=== PATIENT | female | born 1950 | race Caucasian/White ===

== ENCOUNTER → 2016-11-18 | Outpatient (CLI) | payer MEDICARE, BC ==
--- NOTE | 2016-11-18 11:49 | XR ---
First digit right hand HISTORY: Trauma and pain to thumb 3 views of the first digit of the right hand. No comparisons Mild osteoarthritic changes are present. Alignment and bone mineralization are maintained. Minimal ma rginal spurring and joint space loss present at the metacarpophalangeal joint, interphalangeal joint. IMPRESSION: Osteoarthritis. No fracture or dislocation.
== END | disposition home or self-care (01) ==
LOC: RADXRMAIN 08:49
PROVIDERS: ATTEND Family Medicine
DX: S69.91XA Unspecified injury of right wrist, hand and finger(s), initial encounter (principal); M18.11 Unilateral primary osteoarthritis of first carpometacarpal joint, right hand

== ENCOUNTER → 2017-08-05 | Outpatient (CLI) | payer MEDICARE, BC ==
[2017-08-05 15:27] LABS: Blood Urea Nitrogen 14 mg/dL (7-17); Non-African American GFR(MDRD) >60 (>60 ml/min/1.73 sqM)
--- NOTE | 2017-08-05 16:37 | CT ---
EXAMINATION TYPE: CT chest w con DATE OF EXAM: 08/05/2017 COMPARISON: 12/09/2014 HISTORY: Follow up scan per patient. History of lung cancer CT DLP: 128.1 mGycm, Automated exposure control for dose reduction was used. CONTRAST: Performed injected with 100 mL of Omnipaque 300. TECHNIQUE: Axial images were obtained at 5 mm thick sections. Reconstructed images are reviewed on [employer] computer in the coronal plane. FINDINGS: Portion of the thyroid visualized is normal. Emphysematous changes are within the lung escudero. There is a 0.8 cm nodule along the medial posterior upper right lung. Series 4 image 16. This is new subtle groundglass opacity may be in the periphery of the left midlung. Series 4 image 24, this is st able. An additional groundglass opacity is in the periphery of the right midlung measures 1.4 cm in AP dimension, this is new. Series 4 image 28. There is a subtle 0.6 cm nodule within the periphery of the right middle lobe. Series 4 image 27. Punctate nodular densities in the periphery of the right m idlung. This measures 0.3 cm in size. Series 4 image 29. This is stable. There is a stable groundglas s opacity in the periphery of the left upper lobe. Series 4 image 18. There is an enlarged lymph node in the anterior superior mediastinum currently measuring 1.4 cm whic h is larger than the 1.2 cm previously. Pretracheal lymph node measures 1.1 cm which is slightly larg er than the 1.0 cm previous. Ascending aorta diameter at the level of the main pulmonary artery is 2. 9 cm. The main pulmonary artery diameter at the bifurcation is 2.3 cm. Vascular calcifications withi n the aorta. Some coronary artery calcification may be present. Limited CT sections are obtained through the upper abdomen. Splenomegaly likely present although the spleen extends out of the [id number]. IMPRESSIONS: 1. Enlarging mediastinal adenopathy discussed above. Consider PET CT for additional evaluation. 2. Enlarging and new areas of groundglass opacities and subtle low density nodules within the lung fi elds. 3. Suspected splenomegaly
== END | disposition home or self-care (01) ==
LOC: RADCTMAIN 14:57
PROVIDERS: ATTEND Family Medicine
DX: R59.0 Localized enlarged lymph nodes (principal); R91.8 Other nonspecific abnormal finding of lung field; J44.9 Chronic obstructive pulmonary disease, unspecified
CPT/HCPCS: 82565; 84520; 71260; 36415; Q9967

== ENCOUNTER → 2018-12-05 | Outpatient (CLI) | payer MEDICARE, BC ==
--- NOTE | 2018-12-07 10:42 | PE ---
Nuclear medicine PET/CT HISTORY: Lung nodule, subsequent Patient received 15 mCi of F-18 FDG intravenously in delayed scanning was performed from the skull ba se to the mid thighs. Localization and attenuation correction CT scan was performed. Correlation to prior nuclear medicine PET/CT 08/30/2017 Neck and chest: Right upper lobe lung nodule is present which shows associated hypermetabolic uptake, the nodule measures 18 mm increased from prior exam approximately 8 mm. SUV is 6.4. Additional nodul arity in the right lung does not show hypermetabolic uptake, there is no pleural or pericardial effus ion. Retrocaval pretracheal lymph node is enlarged 12 mm as on prior exam but without hypermetabolic uptake. Abdomen pelvis: Colonic uptake in the right is likely physiologic. There is no retroperitoneal adenop athy. No adrenal mass. No evident liver mass. Aorta shows atheromatous change. Suspect postop changes of the gastroesophageal junction. The spleen appears prominently. No ascites. Patient is likely post appendectomy. Osseous structures are within normal limits. IMPRESSION: Interval increase in size in right upper lobe lung nodule with associated hypermetabolic uptake is a suspicious finding for bronchogenic carcinoma, recommend pulmonary consult.
== END ==
LOC: RADPETMAIN 13:29
PROVIDERS: ATTEND Family Medicine
DX: R91.1 Solitary pulmonary nodule (principal)
CPT/HCPCS: 78815; A9552

== ENCOUNTER → 2019-03-15 | Outpatient (CLI) | payer MEDICARE, BC ==
--- NOTE | 2019-03-15 16:10 | CT ---
EXAMINATION TYPE: CT angio chest DATE OF EXAM: 03/15/2019 COMPARISON: CT chest August 05, 2017. PET/CT December 05, 2018. HISTORY: Increasing SOB and chest pain after CA removed from right lung CT DLP: 321 mGycm. Automated Exposure Control for Dose Reduction was Utilized. CONTRAST: CTA scan of the thorax is performed with IV Contrast, patient injected with 80 mL of Isovue 300, pulm onary embolism protocol. MIP Images are created on CT scanner and reviewed. FINDINGS: LUNGS: Background of moderate emphysematous change redemonstrated. New scarlike opacity posterior rig ht upper lobe at area of prior hypermetabolic nodule is consistent with interval surgery as there are adjacent sutures present. Some foci of groundglass opacity in the periphery of the right midlung lat erally axial image 61 are noted could reflect developing edema and/or infiltrates. Some mild linear s carring and/or atelectasis throughout both bases is present. No new nodules or masses. MEDIASTINUM: There is satisfactory enhancement of the pulmonary artery and its branches, there is no CT evidence for pulmonary embolism. There is no suspicious subcarinal lymph node measuring 2.1 x 1.6 cm on axial image 72. There is no suspicious anterior superior mediastinal lymph node anterior to aortic arch measuring 1.2 x 1.1 cm axial image 46 with adjacent smaller lymph nodes seen superior to this. There is also enlarged pericarinal lymph node axial image 60 noted. These are more prominent f rom PET/CT where they did not show hypermetabolic uptake but remain suspicious. No cardiomegaly or pericardial effusion is seen. OTHER: Splenomegaly is felt present only partially imaged. Surgical clips just below diaphragm at gas troesophageal junction are redemonstrated. There is mild to moderate left-sided intrahepatic biliary dilatation felt present new from recent PET/CT that warrants follow-up. Osseous structures are demine ralized. IMPRESSION: 1. No CT evidence for acute pulmonary embolism 2. Interval right-sided partial pneumonectomy. Background moderate emphysematous change with scattere d parenchymal scarring and/or atelectasis. New thoracic adenopathy is felt present worrisome for neop lastic recurrence. Advise repeat PET/CT. New or enlarging splenomegaly felt present. New mild to mode rate left-sided intrahepatic biliary dilatation likely warrants follow-up.
== END | disposition home or self-care (01) ==
LOC: RADCTMAIN 14:56
PROVIDERS: ATTEND Family Medicine
DX: J43.9 Emphysema, unspecified (principal); Z90.2 Acquired absence of lung [part of]; R59.0 Localized enlarged lymph nodes; J90 Pleural effusion, not elsewhere classified
CPT/HCPCS: 82565; 84520; 71275; 36415; Q9967

== ENCOUNTER → 2019-05-21 | Outpatient (CLI) | payer MEDICARE, BC ==
[2019-05-21 12:06] LABS: INR 0.9 (<1.2); Prothrombin Time 9.8 sec (9.0-12.0)
[2019-05-21 12:08] LABS: Anisocytosis Slight; HCT 36.4 % (34.0-46.0); HGB 11.1 gm/dL (11.4-16.0); Hypochromasia Slight; MCH 24.8 pg (25.0-35.0); MCHC 30.6 g/dL (31.0-37.0); MCV 80.9 fL (80.0-100.0); Mean Platelet Volume 8.2; Platelet Count 128 k/uL (150-450); RDW 16.6 % (11.5-15.5); WBC 5.4 k/uL (3.8-10.6)
[2019-05-21 12:11] LABS: Potassium 4.9 mmol/L (3.5-5.1)
[2019-05-21 13:05] LABS: Eosinophils # (M) 0.16 k/uL (0-0.7); Monocytes # (M) 0.59 k/uL (0-1.0); Neutrophils # (M) 3.35 k/uL (1.3-7.7); Neutrophils % (M) 62 %; Nucleated Red Blood Cells 0 /100 WBC (0-0); Total Cells Counted 100
--- NOTE | 2019-05-29 23:18 | PCN ---
PROCEDURE NOTE SURGEON: Dr. Ramirez and Dr. Rogel. PROCEDURE: Bedside bronchoscopy with portable bronchoscope. PREOPERATIVE DIAGNOSIS: Airway secretions. POSTOPERATIVE DIAGNOSIS: Airway secretions. After the patient was adequately sedated and paralyzed, the bronchoscope was inserted through the bronchoscope adaptor connected to the endotracheal tube. There was evaluation of both the airways. The right lung and left lung had really pristine looking airways. There were no secretions or blood. No mass or tumor. The patient tolerated the procedure well. No samples were sent. MMODL / IJN: [id number] /
== END | disposition home or self-care (01) ==
LOC: LABPAT 11:21
PROVIDERS: ATTEND Thoracic Surgery (Cardiothoracic Vascular Surgery)
DX: Z01.812 Encounter for preprocedural laboratory examination (principal); C34.11 Malignant neoplasm of upper lobe, right bronchus or lung; D69.6 Thrombocytopenia, unspecified; R73.9 Hyperglycemia, unspecified
CPT/HCPCS: 36415; 80051; 82565; 82947; 84520; 85025; 85610; 85730

== ENCOUNTER 2019-05-27 05:46 | Inpatient (IN) | payer MEDICARE, BC ==
[~2019-05-27 05:46] MED LIST: DEXAMETHASONE SOD PHOSPHATE 10 MG/ML 1 ML VIAL IV ONE; LACTATED RINGERS 1,000 ML IV SCH; LIDOCAINE 1% 20 ML VIAL (10MG/ML) FOR IV START INTRADERMA PRN; ONDANSETRON 4 MG/2 ML VIAL IVP ONE; SCOPOLAMINE 1.5MG/72HR PATCH TRANSDERM ONE
[2019-05-27] MEDS ORDERED: LACTATED RINGERS 1,000 ML IV ONE ×3 (06:37→11:55)
[2019-05-27] MEDS ORDERED: LIDOCAINE 1% 20 ML VIAL (10MG/ML) FOR IV START INTRADERMA ONE (06:44)
[2019-05-27] MEDS ORDERED: DEXAMETHASONE SOD PHOSPHATE 4 MG/ML 1 ML VIAL IVP ONE (06:45)
[2019-05-27] MEDS ORDERED: ONDANSETRON 4 MG/2 ML VIAL IVP ONE (06:46)
[2019-05-27] MEDS ORDERED: fentaNYL (PF) 50 MCG/ML 2 ML AMP ONE (07:31)
[2019-05-27] MEDS ORDERED: LIDOCAINE 1% INJ 10MG/ML (20 ML MDV) ONE (07:31)
[2019-05-27] MEDS ORDERED: PHENYLEPHRINE-0.9% NACL SYG 1 MG/10 ML SYRINGE ONE (07:31)
[2019-05-27] MEDS ORDERED: MIDAZOLAM 2 MG/2 ML VIAL ONE (07:31)
[2019-05-27] MEDS ORDERED: GLYCOPYRROLATE 0.2 MG/ML 2 ML VIAL ONE (07:31)
[2019-05-27] MEDS ORDERED: NEOSTIGMINE 1 MG/ML 10 ML VIAL ONE (07:31)
[2019-05-27] MEDS ORDERED: PROPOFOL 10 MG/ML 20 ML VIAL IV ONE (07:31)
[2019-05-27] MEDS ORDERED: SUCCINYLCHOLINE CHLORIDE 100 MG/5 ML SYR IV ONE (07:31)
[2019-05-27] MEDS ORDERED: ROCURONIUM BROMIDE 10 MG/ML 10 ML VIAL IV ONE (07:31)
[2019-05-27] MEDS ORDERED: BUPIVACAINE (PF) 0.5% 30 ML VIAL SQ ONE (09:11)
--- NOTE | 2019-05-27 12:10 | P.OP ---
Date of Procedure: 05/27/19 Preoperative Diagnosis: Lung cancer right upper lobe status post wedge resection. Postoperative Diagnosis: Same Procedure(s) Performed: Mediastinal mass could be, right third thoracoscopy with robotic assist with lysis of adhesions, wedge resection right upper lobe, right upper lobectomy Anesthesia: STEPHON Surgeon: Gustavo Gardner Sap Crm Developer #1: Tor Velasquez Estimated Blood Loss (ml): 300 IV fluids (ml): 1,600 Urine output (ml): 125 Pathology: other (Right upper lobe posterior segmental wedge resection, right upper lobectomy, lymph node stations R4, level VII, R8, R 10, R 11) Condition: stable Disposition: PACU Indications for Procedure: 68-year-old female who is status post resection of a T2 tumor from the posterior segment of the right upper lobe via wedge resection at [facility]. Patient was referred to oncology. Lymph robbie staging have not been performed. PET scan showed some uptake in the lung consistent with postsurgical change as well as some mild uptake in the lymph nodes. There were no markedly enlarged lymph nodes. Lobectomy was recommended. It was felt ideal to perform mediastinoscopy part first to rule out N3 disease. Operative Findings: The paratracheal region was severely scarred and successful mediastinal lymph node biopsy could not be accomplished. Right pleural space was similarly severely scarred with diffuse dense adhesions. Once these of been taken down there was a question of a mass in the right posterior segment by the old staple line. This was wedged out but on removing it there was no mass evident just the old staple line. We then proceeded with the lobectomy. Lymph nodes appeared anthracotic. Description of Procedure: The patient was brought to the operating room, placed supine on the operating table, anesthetized and intubated with a double-lumen endotracheal tube. Tube was positioned with fiberoptic bronchoscopy and secured. The anterior neck and chest were sterilely prepped and draped. Transverse incision was made in the lower neck and carried down through skin and subcutaneous tissue then between the strap muscles in the midline. The pretracheal plane was entered. Treat pretracheal plane was severely scarred. With persistent and gentle dissection we were able to ultimately advance most of the way down the trachea and below the innominate artery however we were not able to successfully identify any lymph nodes even after inserting the mediastinoscope. Ultimately was decided to abandon this approach for fear that we would injure the patient. Incision was closed with layers of 3-0 Vicryl and skin glue. Patient was turned into the left lateral decubitus position and the right chest was sterilely prepped and draped. She was appropriately positioned for robotic lobectomy. Initial incision was made in the posterior axillary line in the ninth interspace a 8 mm port was advanced. This was a free area of the pleural space but the remainder of the pleural space was densely adherent. We were able to clear enough adhesions to get the ports in and then robotically take down the remaining adhesions. Was a question of a mass in the posterior segment of the right upper lobe in the region of the previous resection. This was wedged out and examined on the back table. All we could identify was old tremaine and no true mass. That point we decided to proceed with the lobectomy. The inferior pulmonary ligament was taken down. R8 and level VII lymph nodes were resected and sent for permanent section. Dissection was carried anterior to the bronchus inter medius and up to the takeoff of the upper lobe bronchus. We able to identify lymph node here and resected and send as R 11 lymph node. We were able to encircle the upper lobe bronchus and ligated and divided with a robotic ring stapler. We were able to dissected out the posterior portion of the truncus anteriosis and identify a small branch going to the posterior segment. This was ligated and divided with a single firing of a robotic stapler. We could not encircled the truncus safely. We therefore went to the front. The branches of the superior pulmonary vein draining the middle lobe were identified and the branches draining the upper lobe were ligated and divided with a vascular stapler. Dissection was carried onto the pulmonary artery and the anterior portion of the truncus was now dissected. We were now able to encircle the truncus and divided the truncus anteriosis with a vascular stapler. The posterior segmental branch was now identified and also ligated and divided with a vascular stapler. The R 10 and R4 lymph nodes were now dissected out and sent for permanent section. The pleural reflection was taken down. The fissures were now completed with multiple firings of robotic blue stapler. The specimen was placed in an Endo Catch bag. The robot was undocked and the working port incision enlarged and the specimen brought out through the working port incision. Was sent for permanent section. Chest tube was placed through separate stab incision and positioned posterior apically. The chest was irrigated and checked for air leak was no air leak from the staple lines or the bronchial stump. There will was some air leak from the lung parenchyma where the adhesions of been taken down. This was accepted. 2 lung ventilation was continued. Rib blocks were performed at the level incisions with half percent Marcaine. Incisions were closed with layers of Vicryl suture. The patient was turned supine and transferred to recovery in stable condition.
--- NOTE | 2019-05-27 12:59 | XR ---
EXAMINATION TYPE: XR chest 1V portable DATE OF EXAM: 05/27/2019 COMPARISON: 03/15/2019 HISTORY: Post lobectomy TECHNIQUE: Single frontal view of the chest is obtained. FINDINGS: There is subcutaneous emphysema and a sizable right-sided pneumothorax measuring approxima tely 30%. Left lung demonstrates costophrenic angle blunting which may represent pleural thickening o r tiny effusion. Surgical clips in the mediastinum noted. Atherosclerotic change aorta. There is diff use osteopenia and suggestive either resorption of the distal left clavicle are previous surgery. Vag ue nodular density right midlung. IMPRESSION: Right chest tube is seen with a approximately 30% right-sided pneumothorax but no medias tinal deviation. 2. Postsurgical change 3. Vague nodular density in the right midlung. A pulmonary nodule the differential diagnosis.
[2019-05-27] MEDS: HYDROmorphone 0.5 MG/0.5 ML SYRINGE IVP PRN ×3 (14:07→14:40)
[2019-05-27] MEDS ORDERED: ONDANSETRON 4 MG/2 ML VIAL IVP PRN (14:34)
[2019-05-27] MEDS ORDERED: DEXTROSE 5%-0.45% NACL 1,000 ML IV SCH (14:34)
[2019-05-27] MEDS ORDERED: IPRATROPIUM-ALBUTEROL 3 ML NEB IH PRN (14:34)
[2019-05-27] MEDS: HYDROcodone/APAP 10-325MG 1 EACH TAB PO SCH ×2 (16:09→17:27)
[2019-05-27] MEDS: IPRATROPIUM-ALBUTEROL 3 ML NEB IH SCH ×3 (16:13→20:27)
[2019-05-27] MEDS: KETOROLAC 30 MG/ML 1 ML VIAL IVP SCH (17:26)
[2019-05-27] MEDS: CARVEDILOL 6.25 MG TAB PO SCH (17:27)
[2019-05-27] MEDS: HEPARIN SODIUM,PORCINE 5,000 UNIT/ML 1 ML VIAL SQ SCH (17:27)
[2019-05-27] MEDS: ALPRAZolam 1 MG TAB PO SCH (17:28)
[2019-05-27] MEDS: SYMBICORT 160-4.5 MCG INHALER INHALATION SCH (20:27)
[2019-05-27] MEDS: PREGABALIN 75 MG CAP PO SCH (22:16)
[2019-05-27] MEDS: DESVENLAFAXINE SUCCINATE 50 MG TAB.ER.24H PO SCH (22:17)
[2019-05-27] MEDS: buPROPion 75 MG TAB PO SCH (22:17)
[2019-05-28] MEDS: HYDROcodone/APAP 10-325MG 1 EACH TAB PO SCH ×5 (00:09→18:04)
[2019-05-28] MEDS: ALPRAZolam 1 MG TAB PO SCH ×3 (00:09→17:22)
[2019-05-28] MEDS: HEPARIN SODIUM,PORCINE 5,000 UNIT/ML 1 ML VIAL SQ SCH ×4 (00:15→23:06)
[2019-05-28] MEDS: KETOROLAC 30 MG/ML 1 ML VIAL IVP SCH ×5 (06:01→23:06)
[2019-05-28] MEDS: CARVEDILOL 6.25 MG TAB PO SCH ×2 (06:20→18:00)
[2019-05-28] MEDS: PANTOPRAZOLE 40 MG TABLET PO SCH (06:20)
[2019-05-28] MEDS: IPRATROPIUM-ALBUTEROL 3 ML NEB IH SCH ×4 (07:11→19:07)
[2019-05-28] MEDS: SYMBICORT 160-4.5 MCG INHALER INHALATION SCH ×2 (07:11→19:07)
[2019-05-28 07:56] LABS: Calcium 7.6 mg/dL (8.4-10.2); Potassium 3.9 mmol/L (3.5-5.1)
[2019-05-28 08:27] LABS: Anisocytosis Slight; Basophils % (A) 1 %; Eosinophils % (A) 1 %; Hypochromasia Slight; Lymphocytes # (A) 1.4 k/uL (1.0-4.8); Lymphocytes % (A) 29 %; MCH 25.4 pg (25.0-35.0); MCV 81.8 fL (80.0-100.0); Mean Platelet Volume 8.3; Monocytes # (A) 0.3 k/uL (0-1.0); Monocytes % (A) 7 %; Neutrophils # (A) 2.7 k/uL (1.3-7.7); Neutrophils % (A) 58 %; Platelet Count 103 k/uL (150-450); RBC 3.78 m/uL (3.80-5.40); RDW 16.8 % (11.5-15.5); WBC 4.7 k/uL (3.8-10.6)
[2019-05-28 08:28] LABS: HGB 9.6 gm/dL (11.4-16.0)
--- NOTE | 2019-05-28 08:38 | XR ---
EXAMINATION TYPE: XR chest 1V DATE OF EXAM: 05/28/2019 COMPARISON: 05/27/2019 HISTORY: Post lobectomy TECHNIQUE: Single frontal view of the chest is obtained. FINDINGS: There is subcutaneous emphysema and a sizable right-sided pneumothorax measuring approxima tely 30%. Left lung demonstrates costophrenic angle blunting which may represent pleural thickening o r tiny effusion. Surgical clips in the mediastinum noted. Atherosclerotic change aorta. There is diff use osteopenia and suggestive either resorption of the distal left clavicle are previous surgery. Vag ue nodular density right midlung. IMPRESSION: 1. Stable right-sided pneumothorax measuring approximately 30%. No mediastinal deviation. 2. Persistent nodularity in the right midlung.
[2019-05-28] MEDS: buPROPion 75 MG TAB PO SCH ×2 (08:45→20:08)
[2019-05-28] MEDS: PREGABALIN 75 MG CAP PO SCH ×2 (08:48→20:09)
[2019-05-28 08:59] LABS: Albumin 2.7 g/dL (3.5-5.0); Total Bilirubin 0.3 mg/dL (0.2-1.3)
--- NOTE | 2019-05-28 14:22 | P.CONS ---
<Joseline Jacobs - Last Filed: 05/28/19 14:22> History of Present Illness - Reason for Consult Consult date: 05/27/19 Status Post Lobectomy Requesting physician: Gloria Soriano - Chief Complaint chest pain SOB - History of Present Illness Mrs. Gaming is a pleasant white female initially seen in consult in September 2014 she had been seen by Dr. Danielle at that time for diagnosis of non-small cell lung cancer status post surgical resection of the left lung at that time adjuvant therapy was not required based on her stage she was last seen in the office in April 2015 and has continued follow-up with surgery and her primary care physician. Timeline of events is still needing to be clarified. In February she was noted to madden ve concern for Right upper lobe recurrence, underwent surgical intervention at [facility], and now underwent Right lysis of adhesions, thoracoscopy and pneumonectomy 05.27.19 Review of Systems A 14 point review of systems was assessed and completed and are all negative except for HPI Past Medical History Past Medical History: Cancer, COPD, Fibromyalgia, Hypertension, Osteoarthritis (OA), Pneumonia Additional Past Medical History / Comment(s): Current right lung cancer. Hx left lung cancer 2000. Hx Shingles 20 yrs ago. Lumbar herniated disc. Hx Pneumonia 6 months ago. History of Any Multi-Drug Resistant Organisms: None Reported Past Surgical History: Appendectomy, Back Surgery, Cholecystectomy, Hernia Repair, Hysterectomy, Orthopedic Surgery Additional Past Surgical History / Comment(s): LT PARTIAL LOBECTOMY D/T CANCER, NO CHEMO NO RADIATION NEEDED. HIATAL HERNIA SURGERY X2. LT BROKEN COLLAR BONE(SX TO FIX), VERITO ELBOW SX FOR TENNIS ELBOW. Past Anesthesia/Blood Transfusion Reactions: No Reported Reaction Past Psychological History: Anxiety, Depression Smoking Status: Light tobacco smoker Past Alcohol Use History: None Reported Additional Past Alcohol Use History / Comment(s): States she smokes off and on. Currently smoking 5 cigarettes per day. Has been smoking since 17 yrs old. 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 RHEUMATIC FEVER CHILD, HAD HEART DISEASE. Mother Family Medical History: Dementia Medications and Allergies Home Medications Medication Instructions Recorded Confirmed Type ALPRAZolam [Xanax] 1 mg PO TID 08/12/14 05/27/19 History HYDROcodone/APAP 10-325MG [Left Hand 1 tab PO QID 08/12/14 05/27/19 History 10-325] Ipratropium-Albuterol Nebulize 3 ml INHALATION RT-BID 08/12/14 05/27/19 History [Duoneb 0.5 mg-3 mg/3 ml Soln] Tiotropium 18 Mcg/Puff [Spiriva] 2 puff INHALATION RT-BID 08/12/14 05/27/19 History Desvenlafaxine Succinate [Pristiq 50 mg PO HS 10/17/14 05/27/19 History ER] Pregabalin [Lyrica] 75 mg PO BID 10/17/14 05/27/19 History Hydrocortisone [Cortizone 10] 1 applic TOPICAL QID 12/12/14 05/27/19 History Budesonide-Formot 160-4.5 Mcg 2 puff INHALATION RT-BID 05/18/19 05/27/19 History [Symbicort 160-4.5 Mcg Inhaler] Carvedilol [Coreg] 6.25 mg PO BID 05/18/19 05/27/19 History buPROPion [Wellbutrin] 75 mg PO BID 05/27/19 05/27/19 History Allergies Allergy/AdvReac Type Severity Reaction Status Date / Time No Known Allergies Allergy Verified 05/27/19 14:05 Physical Exam Vitals: Vital Signs Temp Pulse Pulse Resp BP BP Pulse Ox 05/27/19 13:45 75 16 145/72 100 05/27/19 13:30 58 L 16 140/64 05/27/19 13:15 56 L 16 149/69 05/27/19 13:00 71 16 141/69 100 05/27/19 12:45 53 L 16 126/61 100 05/27/19 12:30 66 18 147/71 100 05/27/19 12:17 97.2 F L 70 16 146/90 05/27/19 06:23 97.2 F L 69 16 136/60 97 Intake and Output 05/26/19 05/27/19 05/27/19 22:59 06:59 14:59 Intake Total 200 1650 Output Total 480 Balance 200 1170 Intake: IV 200 1650 Output: Urine 180 Estimated Blood Loss 300 General: Alert and Oriented x3, No Acute Distress Head: Normocytic, Atraumatic Neck: Supple Mouth: No Lesions, No Thrush Eyes: Non-sclerotic No Palpable cervical, supraclavicular, axillary adenopathy Heart: Regular Rate, Regular Rhythm Lungs: Clear to Ausculations, No Wheeze, No Rhonchi, Diminishe bilateral lower lobes, No increased respiratory effort noted Abdomen: Soft, Non-Distended, Non-Tended, BSx4 Extremities: No Edema, Equal Strength Neurological: No Focal Defects: No sensory or motor deficits noted Psych: Calm and cooperative Results CBC & Chem 7: 05/28/19 07:23 05/28/19 07:23 Assessment and Plan Plan: Assessment and Recommendations: Hx: Non-Small Cell Lung Cancer Left Lung in (not requiring adjuvant treatment) - Underwent surgical resection - Will ask for records from prior surgery in 2014 and pathology Right Upper Lobe adenopathy and Concern for recurrent cancer: - Status Post surgical intervention at [facility] - Will ask for records, pathology, and imaging - 05.27.19: Status post surgical intervention for further resction and lysis of adhesions - Path will need to be (if not already sent) for EGFR, ALK, ROS, RET, BRAF, PDL-1, Hx: Splenomegaly Hx: Tobacco Abuse Plan: Once we are provided the full picture of information further recommendations will follow. <Pablo Rodriguez - Last Filed: 05/28/19 16:41> History of Present Illness - Reason for Consult Consult date: 05/28/19 - History of Present Illness Clarification after review of office notes: The patient's initial lung cancer diagnosis was in the left lower lobe in 2010. This was treated with resection with no adjuvant therapy recommended based on stage. - She was seen in 2014 due to new onset of pancytopenia after acute illness and antibiotic therapy. This resolved spontaneously. - She was found to have a new right upper lobe mass in 12/15, which was subsequently positive on PET scan. She had a wedge resection at [facility] revealing a 2 cm adenocarcinoma, that was completely resected, but did show visceral pleural involvement. Due to the same, she was seen by radiation oncology , Dr. Villalba and had a repeat PET scan done in either 02/14 or 03/17, rev ealing some is doing uptake at the surgical site as well as borderline uptake in a right paratracheal node. The case was discussed with radiation oncology and it was recommended that the patient be referred to cardiothoracic surgery for lymph node biopsy via mediastinoscopy. After evaluation by CT surgery, it was felt that it would be reasonable to do completion lobectomy if the lymph node was not involved. At the time of surgery due to extensive scarring in the right paratracheal area a lymph node sampling on mediastinoscopy was not possible. The patient therefore proceeded to lobectomy and lymph node dissection. Physical Exam Vitals: Vital Signs Temp Pulse Pulse Resp BP Pulse Ox 05/28/19 16:00 74 05/28/19 15:52 76 05/28/19 12:07 97.8 F 71 19 121/59 92 L 05/28/19 12:00 78 05/28/19 11:50 76 05/28/19 08:45 74 18 05/28/19 07:25 74 05/28/19 07:23 98.5 F 73 18 127/60 99 05/28/19 07:11 78 05/28/19 04:00 97.8 F 74 20 135/63 96 05/28/19 00:00 98.8 F 74 18 130/59 94 L 05/27/19 20:41 74 05/27/19 20:27 72 20 05/27/19 20:00 98.6 F 77 18 120/54 100 Intake and Output 05/28/19 05/28/19 05/28/19 06:59 14:59 22:59 Output Total 230 400 Balance -230 -400 Output: Chest Tube Drainage 230 Right Mid-Axillary Chest 230 Urine 400 Other: Voiding Method Toilet Toilet # Voids 1 1 Weight 53.8 kg Results CBC & Chem 7: 05/28/19 07:23 05/28/19 07:23 Labs: Abnormal Lab Results - Last 24 Hours (Table) 05/28/19 05/28/19 Range/Units 07:23 07:23 RBC 3.78 L (3.80-5.40) m/uL Hgb 9.6 L D (11.4-16.0) gm/dL Hct 31.0 L (34.0-46.0) % RDW 16.8 H (11.5-15.5) % Plt Count 103 L (150-450) k/uL BUN 18 H (7-17) mg/dL Glucose 114 H (74-99) mg/dL Calcium 7.6 L (8.4-10.2) mg/dL Total Protein 5.0 L (6.3-8.2) g/dL Albumin 2.7 L (3.5-5.0) g/dL Assessment and Plan Plan: As above. Clarification : Prior records from office chart and reviewed and detailed in the HPI Case was discussed with the patient and her was at the bedside. Vision was quite lethargic and sleepy. The family was advised that additional adjuvant therapy would depend on the results of the pathology. If the patient were found to have residual disease in the lung or lymph node, and she would be a candidate for adjuvant chemotherapy, and possibly radiation. However that would not start until the patient is adequately recovered from this surgery, which would be a minimum of about 4-6 weeks. She will therefore be followed up as an outpatient post discharge, with recommendations depending on the pathology, and her performance status
[2019-05-28] MEDS ORDERED: CALCIUM GLUCONATE 1 GM in SODIUM CHLORIDE 0.9% 100 ML IVPB ONE (15:00)
--- NOTE | 2019-05-28 15:08 | P.PN ---
Subjective Progress Note Date: 05/28/19 Principal diagnosis: Lung cancer right upper lobe, pathology pending. History of left-sided non- small cell lung cancer with surgical resection in 2015 without chemo or radiation, current tobacco dependence, COPD, hypertension, depression. POD #1 mediastinal, right third thoracoscopy with robotic assist with lysis of adhesions, wedge resection right upper lobe, right upper lobectomy The patient was sitting up in bed and this morning, very sleepy. Upon return assessment she was up in a recliner in no acute distress sipping coffee. She stated pain was controlled on current medication regimen and denied excessive shortness of breath. Remains on 2 L nasal cannula. Right pleural chest tube remains to continuous wall suction with continuous air leak. No new concerns. Objective - Vital Signs Vital signs: Vital Signs Temp 97.8 F 05/28/19 12:07 Pulse 71 05/28/19 12:07 Resp 19 05/28/19 12:07 BP 121/59 05/28/19 12:07 Pulse Ox 92 L 05/28/19 12:07 Intake & Output 05/27/19 05/28/19 05/28/19 18:59 06:59 18:59 Intake Total 1920 Output Total 605 230 400 Balance 1315 -230 -400 Weight 53.8 kg Intake: IV 1800 Intake, IV Titration 120 Amount Dextrose 5%-0.45% NaCl 1, 120 000 ml @ 40 mls/hr IV . Q24H [facility] Rx#:[id number] Output: Chest Tube Drainage 80 230 Right Mid-Axillary Chest 80 230 Urine 180 400 Pleural Fluid 45 Estimated Blood Loss 300 Other: Voiding Method Toilet Toilet Toilet # Voids 0 1 1 # Bowel Movements 0 - Constitutional General appearance: Present: cooperative, no acute distress - Respiratory Details: Lungs sounds diminished bilaterally with faint expiratory wheezes present. Respirations even, nonlabored. Currently on 2 L nasal cannula with oxygen saturation 92-96%. Right pleural chest tube to continuous wall suction, 230 mL serous and was drainage overnight, 550 mL since surgery. Positive continuous air leak present. - Cardiovascular Details: S1, S2 present. Regular rate and rhythm, sinus rhythm on telemetry. Palpable peripheral pulses bilaterally. No edema present. No calf pain or tenderness noted. SCDs present. - Gastrointestinal Gastrointestinal Comment(s): Abdomen soft, nontender, nondistended. Active bowel sounds present 4 quadrants. Tolerating diet. - Genitourinary Genitourinary Comment(s): Continues to void clear, yellow urine. - Integumentary Integumentary Comment(s): Skin is warm and dry with evidence of good perfusion. - Neurologic Neurologic: Present: CNII-XII intact - Musculoskeletal Musculoskeletal: Present: gait normal, strength equal bilaterally - Psychiatric Psychiatric: Present: A&O x's 3, appropriate affect, intact judgment & insight - Allied health notes Allied health notes reviewed: nursing - Labs CBC & Chem 7: 05/28/19 07:23 05/28/19 07:23 Labs: Abnormal Lab Results - Last 24 Hours (Table) 05/28/19 05/28/19 Range/Units 07:23 07:23 RBC 3.78 L (3.80-5.40) m/uL Hgb 9.6 L D (11.4-16.0) gm/dL Hct 31.0 L (34.0-46.0) % RDW 16.8 H (11.5-15.5) % Plt Count 103 L (150-450) k/uL BUN 18 H (7-17) mg/dL Glucose 114 H (74-99) mg/dL Calcium 7.6 L (8.4-10.2) mg/dL Total Protein 5.0 L (6.3-8.2) g/dL Albumin 2.7 L (3.5-5.0) g/dL - Imaging and Cardiology Chest x-ray: report reviewed, image reviewed Assessment and Plan Assessment: 1. Lung cancer right upper lobe, status post robotic-assisted thoracoscopy, lysis of adhesions, wedge resection, followed by right upper lobectomy 2. History of left sided non-small cell lung cancer with surgical resection in 2015 without chemo or radiation 3. Current tobacco dependence 4. COPD 5. Hypertension 6. Depression Plan: 1. Continue right pleural chest tube to continuous wall suction. Monitor for resolution of air leak. 2. Wean O2 as tolerated. Encourage incentive spirometry use 10 times every hour while awake 3. Encourage smoking cessation 4. Bronchodilators, steroids per pulmonology 5. GI/DVT prophylaxis 6. Pain control with current medication regimen 7. Will monitor daily labs, x-rays. Will give 1 g calcium gluconate today 8. Increase activity, ambulate in room. Nursing to lengthen chest tube suction tubing to allow patient to ambulate in the room 9. Medical management of other comorbidities per Dr. Pérez 10. More recommendations to follow Time with Patient: Greater than 30
[2019-05-28] MEDS ORDERED: Potassium Replacement Protocol 1 EACH MISC MISCELLANE PRN (16:00)
--- NOTE | 2019-05-28 16:03 | P.PN ---
Subjective Progress Note Date: 05/28/19 This is a 68-year-old female with history of ongoing nicotine dependence, COPD, hypertension, depression, left non-small cell lung cancer status post surgical resection 2014 without chemotherapy or radiation, now presenting with right upper lobe lung cancer status post mediastinal arthroscopy with lysis of adhesions, wedge resection and right upper lobectomy. Sitting up in chair, taking coffee. Denies nausea vomiting. Complains of pain at chest tube insertion site, improving. Incentive spirometer up to 1250. Telemetry sinus bradycardia to sinus rhythm.VSS. Right pleural chest tube to continuous wall suction with air leak, containing O2 sats in the 90s. Calcium 7.6. Objective - Vital Signs Vital signs: Vital Signs Temp 97.8 F 05/28/19 12:07 Pulse 71 05/28/19 12:07 Resp 19 05/28/19 12:07 BP 121/59 05/28/19 12:07 Pulse Ox 92 L 05/28/19 12:07 Intake & Output 05/27/19 05/28/19 05/28/19 18:59 06:59 18:59 Intake Total 1920 Output Total 605 230 400 Balance 1315 -230 -400 Weight 53.8 kg Intake: IV 1800 Intake, IV Titration 120 Amount Dextrose 5%-0.45% NaCl 1, 120 000 ml @ 40 mls/hr IV . [facility]H [facility] Rx#:[id number] Output: Chest Tube Drainage 80 230 Right Mid-Axillary Chest 80 230 Urine 180 400 Pleural Fluid 45 Estimated Blood Loss 300 Other: Voiding Method Toilet Toilet Toilet # Voids 0 1 1 # Bowel Movements 0 - Exam PHYSICAL EXAM: VITAL SIGNS: As above GENERAL: Sitting up in chair, no acute distress HEENT: Conjunctivae normal. eyes normal. Oral mucosa moist. NECK: No JVD. No thyroid enlargement. CARDIOVASCULAR: S1, S2 regular. No murmur RESPIRATION: Nonlabored. Breath sounds diminished in the bases, right greater than left. No rhonchi or crackles. Occasional fine expiratory wheezing. Right pleural chest tube with serosanguineous drainage, positive air leak. ABDOMEN: Soft, nontender . No guarding. no masses palpable. Bowel sounds heard. LEGS: No edema. no swelling. No calf tenderness PSYCHIATRY: Alert and oriented X3, mood and affect normal. NERVOUS SYSTEM: Cranial N 2-12 grossly normal. Moves all 4 limbs. Diffuse weakness No focal deficits. Strength and sensation grossly intact.. Skin: no lesions, no rash - Labs CBC & Chem 7: 05/28/19 07:23 05/28/19 07:23 Labs: Abnormal Lab Results - Last 24 Hours (Table) 05/28/19 05/28/19 Range/Units 07:23 07:23 RBC 3.78 L (3.80-5.40) m/uL Hgb 9.6 L D (11.4-16.0) gm/dL Hct 31.0 L (34.0-46.0) % RDW 16.8 H (11.5-15.5) % Plt Count 103 L (150-450) k/uL BUN 18 H (7-17) mg/dL Glucose 114 H (74-99) mg/dL Calcium 7.6 L (8.4-10.2) mg/dL Total Protein 5.0 L (6.3-8.2) g/dL Albumin 2.7 L (3.5-5.0) g/dL Assessment and Plan Assessment: -Right upper lobe lung cancer, status post arthroscopy, lysis of adhesions, wedge resection, lobectomy -History of left-sided non-small cell lung CA status post surgical resection in 2014 without chemotherapy or radiation -Hypocalcemia -Ongoing nicotine dependence -Hypertension -COPD -Fibromyalgia -Osteoarthritis -Anxiety, Depression -Hypoalbuminemia -Moderate protein calorie malnutrition, BMI 20.4 Plan: Continue on current medication regime ,monitoring and symptomatic treatment. Protein supplements ordered, dietary consulted .Calcium gluconate 1 g IV push 1 ordered. Maintain nebulized bronchodilators, steroids. Aggressive pulmonary toileting with incentive spirometer reinforced. Pain management. Increase ambulation as tolerated. GI and DVT prophylaxis in place. Smoking cessation reinforced. The impression and plan of care has been dictated as directed. : I performed a history and examination of this patient, discussed the same with the dictator. I agree with the dictator's note ,documented as a scribe. Any additional findings or plans will be noted.
--- NOTE | 2019-05-28 16:53 | CONS ---
CONSULTATION Rhea Gaming is a 68-year-old female who presented to [facility] for right- sided upper lobectomy of the lung due to a history of lung cancer. The patient is in the postoperative state. She has some pain in her right chest wall. Does not complain of any shortness of breath. She is known to me and has a history of lung cancer, initially diagnosed by needle biopsy which showed evidence of some neuroendocrine features. She underwent wedge resection with lymph node dissection. There was some tumor invading the visceral pleura. She subsequently underwent mediastinoscopy as well as right upper lobectomy and is in the postoperative state. PAST MEDICAL HISTORY: Past medical history is positive for: 1. Lung cancer, status post partial pneumonectomy on the left, and recent right upper lobe lung cancer. 2. History of COPD. 3. Anxiety. 4. Fibromyalgia. 5. Cholecystectomy. 6. Appendectomy. 7. Hysterectomy. FAMILY HISTORY: Positive for cancer in her father, dementia in her mother. SOCIAL HISTORY: Patient used to smoke cigarettes. She does not drink alcohol excessively. MEDICATIONS: Her medications prior to admission were: 1. Wellbutrin. 2. Spiriva. 3. Lyrica. 4. DuoNeb. 5. Cortisone cream. 6. [place]. 7. Desvenlafaxine. 8. Coreg. 9. Symbicort. 10.Xanax. REVIEW OF SYSTEMS: Noncontributory other than for what is described in the history of present illness and past medical history. PHYSICAL EXAMINATION: Blood pressure 121/59, respiratory rate of 19, pulse rate of 71, temperature 97.8. Oxygen saturation on 2 L by nasal cannula is 92%. HEENT reveals pupils that are equal. Chest reveals decreased breath sounds on the left base and in the right mid zone. There is a right-sided chest tube in place with air leak. Cardiovascular system reveals an S1, S2. No S3, no S4. Abdomen is soft. There is no pedal edema. LABS/IMAGING: White count of 4.7, hemoglobin of 9.6, sodium 139, potassium 3.9, chloride 106, bicarb 29, BUN 18, creatinine 1.03. Chest x-ray shows right-sided pneumothorax which is approximately 30% with some subcutaneous emphysema. IMPRESSION AT THIS TIME: 1. Lung cancer, status post right upper lobectomy. 2. Chronic obstructive pulmonary disease. 3. Right-sided pneumothorax, expected from her surgery. 4. Fibromyalgia. At this point in time, keep her on GI and DVT prophylaxis. Increase use of incentive spirometry. Continue bronchodilators and aerosolized steroids. Her prognosis at this time is fair. She was counseled regarding her condition and our recommendations. ELTON / ANTONI: [id number] /
[2019-05-28] MEDS: DESVENLAFAXINE SUCCINATE 50 MG TAB.ER.24H PO SCH (20:09)
[2019-05-29] MEDS: ALPRAZolam 1 MG TAB PO SCH (00:51)
[2019-05-29] MEDS: HYDROcodone/APAP 10-325MG 1 EACH TAB PO SCH (00:51)
[2019-05-29 04:30] LABS: Allen Test Performed? Yes
[2019-05-29 04:36] LABS: Glucose,Whole Blood 101 mg/dL (75-99)
--- NOTE | 2019-05-29 04:36 | XR ---
EXAM: XR Chest, 1 View CLINICAL HISTORY: ITS.REASON XR Reason: hypoxia, ronchi TECHNIQUE: Frontal view of the chest. COMPARISON: 05/28/19. FINDINGS: Interval increase in patchy right lung opacities. Persistent right pneumothorax with right chest tube again noted. Additional findings appear similar to prior study. IMPRESSION: Interval increase in patchy right lung opacities. Correlate clinically regarding edema or infection.
[2019-05-29 04:45] LABS: ABG Base Excess -3.2 mmol/L; ABG HCO3 20 mmol/L (21-25); ABG Oxygen Saturation 91.7 % (94-97); ABG PCO2 25 mmHg (35-45); ABG PH 7.51 (7.35-7.45); ABG TCO2 21 mmol/L (19-24); Allen Test Performed? Yes
[2019-05-29 04:54] LABS: ABG PO2 55 mmHg (83-108)
[2019-05-29] MEDS ORDERED: CHLORHEXIDINE GLUCONATE 15 ML CUP MUCOUS MEM ONE (06:00)
[2019-05-29] MEDS ORDERED: PROPOFOL 10 MG/ML 20 ML VIAL IV ONE (06:00)
[2019-05-29 06:18] LABS: Anisocytosis Slight; HCT 35.8 % (34.0-46.0); HGB 11.3 gm/dL (11.4-16.0); Hypochromasia Moderate; MCH 25.8 pg (25.0-35.0); MCHC 31.5 g/dL (31.0-37.0); MCV 81.9 fL (80.0-100.0); Mean Platelet Volume 10.2; Platelet Count 140 k/uL (150-450); RBC 4.37 m/uL (3.80-5.40); RDW 16.4 % (11.5-15.5); WBC 3.7 k/uL (3.8-10.6)
[2019-05-29 06:27] LABS: Albumin 2.7 g/dL (3.5-5.0); Calcium 7.8 mg/dL (8.4-10.2); Potassium 3.3 mmol/L (3.5-5.1); Total Bilirubin 0.9 mg/dL (0.2-1.3); Total Protein 4.9 g/dL (6.3-8.2)
--- NOTE | 2019-05-29 06:51 | XR ---
EXAM: XR Chest, 1 View CLINICAL HISTORY: ITS.REASON XR Reason: tube placement TECHNIQUE: Frontal view of the chest. COMPARISON: 05/29/19 at 420. FINDINGS: New large lucency at the right lung base of indeterminate etiology. Endotracheal tube with the tip not well seen, likely above the frod. Feeding tube extends into the stomach, the tip below the field of view. Right chest tube again noted. Right pneumothorax appears slightly more prominent compared to prior. Patchy right lung opacities again seen. Additional findings similar to prior. IMPRESSION: 1. New large lucency at the right lung base of indeterminate etiology. Lateral view may be helpful. 2. Tubes and lines, as above. <MYCVCSECTION> [employer] 05/29/19 07:05 Verify Receipt Verified receipt with CLINICAL APPEALS SPECIALISTSMITH Quarles for SMITH Benavidez on 05/29 07:04 (-04:00)
[2019-05-29] MEDS ORDERED: METOPROLOL TARTRATE 5 MG/5 ML VIAL IVP ONE (06:59)
[2019-05-29] MEDS ORDERED: fentaNYL (PF) 50 MCG/ML 2 ML AMP IVP STA (07:49)
[2019-05-29] MEDS: CARVEDILOL 6.25 MG TAB PO SCH (07:50)
[2019-05-29] MEDS: PANTOPRAZOLE 40 MG TABLET PO SCH (07:50)
[2019-05-29] MEDS ORDERED: CISATRACURIUM 2 MG/ML 5 ML VIAL IV ONE (07:51)
[2019-05-29] MEDS ORDERED: CISATRACURIUM 200 MG in SODIUM CHLORIDE 0.9% 180 ML IV SCH (08:00)
[2019-05-29 08:26] LABS: ABG HCO3 17 mmol/L (21-25); ABG PCO2 36 mmHg (35-45); ABG PH 7.29 (7.35-7.45); ABG PO2 127 mmHg (83-108)
[2019-05-29 08:27] LABS: ABG TCO2 18 mmol/L (19-24)
[2019-05-29] MEDS ORDERED: RX INFO: IV CONTRAST WAS GIVEN 1 EACH MISC MISCELLANE PRN (08:31)
[2019-05-29] MEDS ORDERED: VANCOMYCIN IV PER PHARMACY 1 EACH MISC MISCELLANE PRN (08:31)
[2019-05-29] MEDS ORDERED: PIPERACILLIN-TAZOBACTAM 3.375 GM in SODIUM CHLORIDE 0.9% 100 ML IVPB SCH (08:45)
[2019-05-29 08:46] LABS: Magnesium 1.3 mg/dL (1.6-2.3); Phosphorus 2.4 mg/dL (2.5-4.5)
--- NOTE | 2019-05-29 08:46 | P.CNPUL ---
History of Present Illness Consult date: 05/29/19 Requesting physician: Gustavo Gardner Reason for consult: other (Mechanical ventilator/critical care management) Chief complaint: Non-small cell lung cancer History of present illness: This is a 68-year-old female patient who follows with Dr. Khurram Pérez as her primary care physician. She has a history of non-small cell lung cancer with previous left upper lobectomy in 2000, hypertension, osteoarthritis. She was found to have recurrent lung cancer in the right lung and T2 tumor of the po sterior segment of the right upper lobe and had undergone a wedge resection at [facility]. Lymph node staging had not been performed at that time. PET scan revealed some uptake in the lung consistent with postsurgical changes as well as some mild uptake in the lymph nodes. Lobectomy was recommended. [place] to be a possible N3 disease. Yesterday she had undergone a right thoracoscopy with robotic assistance with lysis of adhesions, right wedge resection of the right upper lobe and right upper lobectomy by Dr. Sheldon Gardner. Pathology is pending. She had been extubated in the recovery room and doing well on the selective care unit. Last night however she had developed altered mental status and an a team was called early this morning at approximately 5 AM. She was transferred here to the intensive care unit and intubated approximate 5:50 AM by PSYCHIATRIC NP. We're consulted this morning and she was seen in the ICU. In the mechanical ventilator. She was set at assist control 12, tidal volume 400, 100% FiO2 and a PEEP of 5. Probably changed to assist control of 20, 350, 100% and a PEEP of 5. Arterial blood gases revealed a PaO2 of 55, pCO2 25, pH 7.51. He was initially quite tachycardic and a synchronous with the vent. She had been on propofol and subsequently started on Nimbex. She had become hypotensive and started on norepinephrine. Temp 99.9. White count 3.7. Hemoglobin 11.3. Sodium 140. Potassium 3.3. Creatinine 1.15. Lactic acid 5.9. She is given additional fluid bolues. She'll be initiated on vancomycin and Zosyn. Review of Systems ROS unobtainable: due to endotracheal tube Past Medical History Past Medical History: Cancer, COPD, Fibromyalgia, Hypertension, Osteoarthritis (OA), Pneumonia Additional Past Medical History / Comment(s): Current right lung cancer. Hx left lung cancer 2000. Hx Shingles 20 yrs ago. Lumbar herniated disc. Hx Pneumonia 6 months ago. History of Any Multi-Drug Resistant Organisms: None Reported Past Surgical History: Appendectomy, Back Surgery, Cholecystectomy, Hernia Repair, Hysterectomy, Orthopedic Surgery Additional Past Surgical History / Comment(s): LT PARTIAL LOBECTOMY D/T CANCER, NO CHEMO NO RADIATION NEEDED. HIATAL HERNIA SURGERY X2. LT BROKEN COLLAR BONE(SX TO FIX), VERITO ELBOW SX FOR TENNIS ELBOW. Past Anesthesia/Blood Transfusion Reactions: No Reported Reaction Past Psychological History: Anxiety, Depression Smoking Status: Light tobacco smoker Past Alcohol Use History: None Reported Additional Past Alcohol Use History / Comment(s): States she smokes off and on. Currently smoking 5 cigarettes per day. Has been smoking since 17 yrs old. 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 RHEUMATIC FEVER CHILD, HAD HEART DISEASE. Mother Family Medical History: Dementia Medications and Allergies Home Medications Medication Instructions Recorded Confirmed Type ALPRAZolam [Xanax] 1 mg PO TID 08/12/14 05/27/19 History HYDROcodone/APAP 10-325MG [[place] 1 tab PO QID 08/12/14 05/27/19 History 10-325] Ipratropium-Albuterol Nebulize 3 ml INHALATION RT-BID 08/12/14 05/27/19 History [Duoneb 0.5 mg-3 mg/3 ml Soln] Tiotropium 18 Mcg/Puff [Spiriva] 2 puff INHALATION RT-BID 08/12/14 05/27/19 History Desvenlafaxine Succinate [Pristiq 50 mg PO HS 10/17/14 05/27/19 History ER] Pregabalin [Lyrica] 75 mg PO BID 10/17/14 05/27/19 History Hydrocortisone [Cortizone 10] 1 applic TOPICAL QID 12/12/14 05/27/19 History Budesonide-Formot 160-4.5 Mcg 2 puff INHALATION RT-BID 05/18/19 05/27/19 History [Symbicort 160-4.5 Mcg Inhaler] Carvedilol [Coreg] 6.25 mg PO BID 05/18/19 05/27/19 History buPROPion [Wellbutrin] 75 mg PO BID 05/27/19 05/27/19 History Allergies Allergy/AdvReac Type Severity Reaction Status Date / Time No Known Allergies Allergy Verified 05/27/19 14:05 Physical Exam Vitals: Vital Signs Temp Pulse Pulse Resp BP Pulse Ox 05/29/19 00:00 99.9 F H 118 H 20 107/48 94 L 05/28/19 20:00 99.0 F 114 H 22 142/62 93 L 05/28/19 19:16 74 05/28/19 19:05 72 05/28/19 16:00 98.1 F 74 106 H 17 109/58 94 L 05/28/19 15:52 76 05/28/19 12:07 97.8 F 71 19 121/59 92 L 05/28/19 12:00 78 05/28/19 11:50 76 05/28/19 08:45 74 18 Intake and Output 05/28/19 05/29/19 05/29/19 22:59 06:59 14:59 Output Total 970 Balance -970 Output: Chest Tube Drainage 370 Right Mid-Axillary Chest 370 Urine 600 Other: Voiding Method Bedside Commode GENERAL EXAM: Intubated, sedated 68-year-old female patient on the mechanical ventilator. HEAD: Normocephalic. EYES: Sluggish reaction of pupils, equal size. NOSE: Clear with pink turbinates. THROAT: Oral endotracheal and gastric tube secured in place. No erythema or exudates. NECK: No masses, no JVD. CHEST: No chest wall deformity. Right-sided chest tube in place. Positive air leak. To wall suction. LUNGS: Equal air entry with scattered rhonchi in the right lung. Diminished CVS: S1 and S2 normal with no audible murmur, regular rhythm. ABDOMEN: No hepatosplenomegaly, normal bowel sounds, no guarding or rigidity. SPINE: No scoliosis or deformity SKIN: No rashes CENTRAL NERVOUS SYSTEM: Sedated, tone is normal in all 4 extremities. EXTREMITIES: There is no peripheral edema. No clubbing, no cyanosis. Peripheral pulses are intact. Results - Laboratory Findings CBC and BMP: 05/29/19 05:26 05/29/19 05:26 ABG ABG pH 7.51 (7.35-7.45) H 05/29/19 04:42 ABG pCO2 25 mmHg (35-45) L 05/29/19 04:42 ABG pO2 55 mmHg (83-108) L* 05/29/19 04:42 ABG O2 Saturation 91.7 % (94-97) L 05/29/19 04:42 Abnormal lab findings: Abnormal Labs 05/28/19 05/28/19 05/29/19 07:23 07:23 04:35 WBC RBC 3.78 L Hgb 9.6 L D Hct 31.0 L RDW 16.8 H Plt Count 103 L ABG pH ABG pCO2 ABG pO2 ABG HCO3 ABG O2 Saturation Potassium Carbon Dioxide BUN 18 H Creatinine Glucose 114 H POC Glucose (mg/dL) 101 H Plasma Lactic Acid Guillermo Calcium 7.6 L Total Protein 5.0 L Albumin 2.7 L 05/29/19 05/29/19 05/29/19 04:42 05:26 05:26 WBC 3.7 L RBC Hgb 11.3 L Hct RDW 16.4 H Plt Count 140 L ABG pH 7.51 H ABG pCO2 25 L ABG pO2 55 L* ABG HCO3 20 L ABG O2 Saturation 91.7 L Potassium 3.3 L Carbon Dioxide 21 L BUN 20 H Creatinine 1.15 H Glucose POC Glucose (mg/dL) Plasma Lactic Acid Guillermo Calcium 7.8 L Total Protein 4.9 L Albumin 2.7 L 05/29/19 05:26 WBC RBC Hgb Hct RDW Plt Count ABG pH ABG pCO2 ABG pO2 ABG HCO3 ABG O2 Saturation Potassium Carbon Dioxide BUN Creatinine Glucose POC Glucose (mg/dL) Plasma Lactic Acid Guillermo 5.9 H* Calcium Total Protein Albumin - Diagnostic Findings Chest x-ray: image reviewed Assessment and Plan Assessment: Impression: #1 Acute hypoxic respiratory failure with altered mental status of unclear etiology. Possible metabolic encephalopathy with lactic acidosis at 5.9, temp 99.9. Initiated on vancomycin and Zosyn. #2 Status post right thoracoscopy with robotic assist with lysis of adhesions, wedge resection of the right upper lobe, right upper lobectomy. Postoperative day #1. Right-sided chest tube in place. #3 Previous right upper lobe wedge resection of a T2 tumor from the posterior segment. Lymph node staging had not been performed. Recent PET scan revealed uptake in the lung consistent with postsurgical changes were also mild uptake in the lymph nodes. Lobectomy was recommended. #4 Previous history of non-small cell lung cancer with left upper lobectomy without adjuvant therapy in 2000. #5 Chronic and ongoing tobacco dependence of 50 years. #6 Chronic obstructive pulmonary disease. #7 Hypertension, history of. #8 Fibromyalgia. #9 Osteoarthritis. Plan: The patient was seen and evaluated by Dr. Ramirez early this morning in the ICU. He did go ahead and paralyze the patient with Nimbex. Initiated norepinephrine. 2 L of IV fluid resuscitation. Continue the propofol. Initiated vancomycin and Zosyn. Left IJ triple-lumen catheter place. Right femoral arterial line placed. Bronchoscopy performed at the bedside. No noted secretions or other thickened abnormalities within the bronchial system bilaterally. Plan for computed tomography scan of the chest. Family has been updated. We'll continue to follow and make further recommendations based on her clinical status. I, the cosigning physician, performed a history & physical examination of the patient. Lungs sounds with few scattered rhonchi in the right lung. Maintaining good O2 saturations in the 90s on 100% FiO2 per mechanical ventilator. I discussed the assessment and plan of care with my nurse practitioner, Sandra Rogel. I attest to the above note as dictated by her.
--- NOTE | 2019-05-29 08:51 | XR ---
EXAMINATION TYPE: XR chest 1V DATE OF EXAM: 05/29/2019 COMPARISON: 05/29/2019 HISTORY: 68 year-old female line insertion. TECHNIQUE: Single frontal view of the chest is obtained. FINDINGS: ET tube tip at the level of the medial clavicular heads, satisfactory. NG tube courses below the diap hragm. Left IJ CVC tip in the upper right atrium, satisfactory. Right-sided apically directed chest t ube remains in place. Improved aeration of the right lung. Apical pneumothorax component measures 2.8 cm versus 3.8 cm, previously. The previously seen large amount of air below the right hemidiaphragm appears to have considerably improved. Trace left pleural effusion. Persistent consolidation througho ut the right lung. IMPRESSION: 1. Right-sided chest tube in place. Improving, now small to moderate sized right apical pneumothorax measuring 2.8 cm versus 3.9 cm, previously. 2. Large amount of air at the right base has significantly improved in the interval. Some minimal res idual pneumoperitoneum would be difficult to exclude. 3. Extensive consolidation throughout the right lung persists. 4. Trace left pleural effusion.
[2019-05-29] MEDS: ARTIFICIAL TEARS-HYPROMELLOSE DROPS 15 ML BTL BOTH EYES SCH ×2 (08:58→12:50)
[2019-05-29] MEDS: SODIUM CHLORIDE 0.9% 1,000 ML IV SCH ×2 (08:59→09:48)
[2019-05-29] MEDS ORDERED: VANCOMYCIN 1,000 MG in SODIUM CHLORIDE 0.9% 250 ML IVPB ONE (09:00)
[2019-05-29] MEDS ORDERED: PANTOPRAZOLE 40 MG/10 ML VIAL IVP SCH (09:00)
[2019-05-29 09:15] LABS: ABG Base Excess -10.8 mmol/L; ABG HCO3 18 mmol/L (21-25); ABG Oxygen Saturation 99.2 % (94-97); ABG PCO2 50 mmHg (35-45); ABG PO2 227 mmHg (83-108); ABG TCO2 19 mmol/L (19-24); Allen Test Performed? Yes
[2019-05-29 09:22] LABS: ABG PH 7.16 (7.35-7.45)
[2019-05-29] MEDS: buPROPion 75 MG TAB PO SCH (09:28)
[2019-05-29] MEDS: PREGABALIN 75 MG CAP PO SCH (09:29)
[2019-05-29] MEDS ORDERED: SODIUM BICARB 8.4% 50 ML SYR (1 MEQ/ML) IV STA ×3 (09:29→11:41)
[2019-05-29] MEDS ORDERED: DEXTROSE 5% IN WATER 1,000 ML with SODIUM BICARB (1 MEQ/ML) 150 ML IV SCH (09:30)
[2019-05-29] MEDS ORDERED: NALOXONE 0.4 MG/ML 1 ML VIAL IV PRN (09:31)
[2019-05-29] MEDS ORDERED: NOREPINEPHRINE 4 MG in SODIUM CHLORIDE 0.9% 250 ML IV SCH (09:45)
[2019-05-29] MEDS ORDERED: CHLORHEXIDINE GLUCONATE 15 ML CUP MUCOUS MEM SCH (09:45)
[2019-05-29] MEDS ORDERED: PROPOFOL 1,000 MG in EMPTY BAG 1 BAG IV SCH (10:00)
[2019-05-29 10:44] VITALS: BMI 20.3
--- NOTE | 2019-05-29 10:50 | CT ---
EXAMINATION TYPE: CT abdomen pelvis w con DATE OF EXAM: 05/29/2019 COMPARISON: Correlation PET/CT 03/20/2019 HISTORY: 68-year-old female acidosis, evaluate abdomen TECHNIQUE: Contiguous axial scanning of the abdomen and pelvis following administration of 80 mL Isov ue 300 IV contrast. Delayed images through the kidneys and coronal/sagittal reconstructions performe d. CT DLP: 684.7 mGycm Automated exposure control for dose reduction was used. FINDINGS: Subcutaneous emphysema along the visualized lower right chest wall extending along the anterolateral right upper abdomen. There is underlying complex pleural effusion suggested at the right base with co rresponding pneumothorax and a chest tube in place. Suggestion of right basilar masses or masslike co nsolidation. NG tube is present. Retained fluid within the stomach and multiple small bowel loops which measure up to 2.1 cm. With stool within the cecum and lower ascending colon. Remainder of the colon is collapse d. Although there seems to be a transition near the hepatic flexure, no appreciable mass is present h ere. Mild generalized colonic wall thickening along the transverse and descending colon may relate to nond istention. Mild thickening of the bilateral adrenal glands appears new from 03/20/2019. Kidneys, spleen, and pancreas are no gross abnormality. Moderate to severe atherosclerotic calcifications throughout the abdominal aorta and iliac arteries. No mesenteric or retroperitoneal lymphadenopathy. Intrahepatic and extra hepatic biliary ductal dilatation with the bile duct measuring up to 1.1 cm ap pears similar to 03/20/2019. Portal venous system is patent. No focal lesion. Simeon catheter decompresses the bladder. Uterus appears surgically absent. Bones: Mild degenerative changes of the hips. No osseous process. IMPRESSION: 1. RIGHT-SIDED CHEST TUBE WITH SUGGESTION OF SOME MASSLIKE AREAS AT THE RIGHT BASE, POSSIBLE METASTAT IC DISEASE. 2. PARTIALLY VISUALIZED RIGHT BASILAR PNEUMOTHORAX. 3. THERE IS ALSO EXTENSIVE OPACITY ALONG THE POSTERIOR HALF OF THE RIGHT BASE THAT DEMONSTRATES HETER OGENEOUS DENSITY AND SOME FOCI OF AIR. THIS COULD REPRESENT A SEVERE CAVITARY PNEUMONIA OR A MODERATE TO LARGE COMPLEX PLEURAL EFFUSION. CLINICALLY CORRELATE. 4. PROMINENT FLUID-FILLED SMALL BOWEL LOOPS THROUGHOUT AND LIQUID STOOL IN THE CECUM. FAVOR GENERALIZ ED ILEUS OR ENTERITIS. 5. MILD WALL THICKENING OF THE TRANSVERSE AND DESCENDING COLON COULD BE SECONDARY TO NONDISTENTION OR ADDITIONAL MILD COLITIS. 6. SUBCUTANEOUS EMPHYSEMA ALONG THE RIGHT THORACOABDOMINAL JUNCTION RELATING TO THE CHEST TUBE. 7. MODERATE TO SEVERE ATHEROSCLEROTIC CALCIFICATIONS.
[2019-05-29] MEDS: HEPARIN SODIUM,PORCINE 5,000 UNIT/ML 1 ML VIAL SQ SCH (10:54)
[2019-05-29] MEDS: MAGNESIUM SULFATE-D5W PMX 1 GM in DEXTROSE/WATER 1 100ML.BAG IVPB SCH ×2 (10:55→10:56)
[2019-05-29] MEDS: POTASSIUM CHLORIDE 20 MEQ in WATER FOR INJECTION 1 100ML.BAG IVPB SCH ×2 (10:55→14:53)
[2019-05-29] MEDS ORDERED: SODIUM CHLORIDE 0.9% 1,000 ML IV ONE ×2 (11:12→12:35)
[2019-05-29 11:35] LABS: ABG Base Excess -8.7 mmol/L; ABG HCO3 20 mmol/L (21-25); ABG Oxygen Saturation 95.9 % (94-97); ABG PCO2 57 mmHg (35-45); ABG PO2 100 mmHg (83-108); ABG TCO2 22 mmol/L (19-24); Allen Test Performed? Yes
[2019-05-29 11:43] LABS: ABG PH 7.16 (7.35-7.45)
--- NOTE | 2019-05-29 11:50 | P.PN ---
Subjective Progress Note Date: 05/29/19 Principal diagnosis: Lung cancer right upper lobe, pathology pending. History of left-sided non- small cell lung cancer with surgical resection in 2015 without chemo or radiation, current tobacco dependence, COPD, hypertension, depression. POD #2 mediastinal, right third thoracoscopy with robotic assist with lysis of adhesions, wedge resection right upper lobe, right upper lobectomy Postoperative acute hypoxic respiratory failure, lactic acidosis, requiring intubation and mechanical ventilation, unexpected The patient was stable yesterday. At some point last night the patient became tachycardic, confused, and slightly obtunded. A-team was called, ABGs were obtained, 7.51/25/55/20, Dr. Gardner was called, the patient was transferred to the ICU and intubated. Once intubated the patient was breathing over the vent with a respiratory rate in the 30s despite max dose propofol. Dr. Ramirez was placed on consult for relief worker managment. The patient was paralyzed with Nimbex. Repeat ABG 7.29/36/127/17 on 100% FiO2. Arterial line and triple lumen central line were placed. Venous lactic acid was drawn, 5.9. 2 Liters IV fluid bolus was ordered. Dr. Ramirez performed bronchoscopy at the bedside with no significant abnormalities found. Sputum/blood/urine cultures were ordered. Patient was started on prophylactic Vanco/Zosyn. Initial CXR this morning demonstrated apical PTX, second CXR after intubation demonstrated additional basilar air pocket of unknown origin, third CXR after line placement demonstrated almost complete resolution of basilar air pocket and improvement of apical PTX. Third ABG 7.16/50/227/18. FiO2 decreased to 60% and respiratory rate increased to 26 BPM. IV bicarb started. Patient being sent for CT of the abdomen to determine source of acidosis. Currently, the patient is intubated, sedated with propofol, paralyzed with Nimbex, blood pressure supported with IV levo,2 L of IV fluid bolus in, on IV bicarb with heart rate in the low 100s sinus. Family has been updated throughout. Objective - Vital Signs Vital signs: Vital Signs Temp 99.9 F H 05/29/19 00:00 Pulse 114 H 05/29/19 09:00 Resp 10 L 05/29/19 09:00 BP 92/67 05/29/19 09:00 Pulse Ox 98 05/29/19 09:00 Intake & Output 05/28/19 05/29/19 05/29/19 18:59 06:59 18:59 Intake Total 200 2.69 Output Total 1370 Balance -1170 2.69 Intake: Intake, IV Titration 2.69 Amount Cisatracurium 200 mg In 2.69 Sodium Chloride 0.9% 180 ml @ 1 MCG/KG/MIN 3.228 mls/hr IV .Q24H [facility] Rx#: [id number] Oral 200 Output: Chest Tube Drainage 370 Right Mid-Axillary Chest 370 Urine 1000 Other: Voiding Method Toilet Bedside Commode # Voids 1 # Bowel Movements 0 ABP, PAP, CO, CI - Last Documented Arterial Blood Pressure 107/48 - Constitutional Constitutional Comment(s): Sedated and paralyzed on mechanical ventilation - Respiratory Details: Lungs sounds diminished bilaterally. Respirations even, nonlabored on mechanical ventilation. Current ventilator settings assist control mode, FiO2 60%, respiratory rate 26, tidal volume 350, PEEP 5. 7.5 ET tube present, 21 at the lip. Right pleural chest tube present to continuous wall suction, 650 mL serosanguineous drainage in the last 24 hours, persistent air leak present. - Cardiovascular Details: S1, S2 present. Tachycardic rate and rhythm, sinus tach on telemetry. Palpable peripheral pulses bilaterally. No edema present. No calf pain or tenderness noted. SCDs present. Right femoral arterial line, left internal jugular triple lumen central line present. CVP measuring 11-12. - Gastrointestinal Gastrointestinal Comment(s): Abdomen soft, nontender, nondistended. Active bowel sounds present 4 quadrants. Tympanic to percussion. OG tube present to low intermittent suction with trace amount of greenish yellow drainage. - Genitourinary Genitourinary Comment(s): Simeon placed this morning, urine output clear and yellow, output decreasing over the last hour. - Integumentary Integumentary Comment(s): Skin is cool and dry, mottling present to her legs, fingers are starting to beco me bluish. - Neurologic Neurologic Comment(s): Currently paralyzed and Nimbex with train of [address] - Allied health notes Allied health notes reviewed: nursing - Labs CBC & Chem 7: 05/29/19 05:26 05/29/19 05:26 Labs: Abnormal Lab Results - Last 24 Hours (Table) 05/29/19 05/29/19 05/29/19 Range/Units 04:28 04:35 04:42 WBC (3.8-10.6) k/uL Hgb (11.4-16.0) gm/dL RDW (11.5-15.5) % Plt Count (150-450) k/uL ABG pH 7.29 L 7.51 H (7.35-7.45) ABG pCO2 25 L (35-45) mmHg ABG pO2 127 H 55 L* (83-108) mmHg ABG HCO3 17 L 20 L (21-25) mmol/L ABG Total CO2 18 L (19-24) mmol/L ABG O2 Saturation 91.7 L (94-97) % Potassium (3.5-5.1) mmol/L Carbon Dioxide (22-30) mmol/L BUN (7-17) mg/dL Creatinine (0.52-1.04) mg/dL POC Glucose (mg/dL) 101 H (75-99) mg/dL Plasma Lactic Acid Guillermo (0.7-2.0) mmol/L Calcium (8.4-10.2) mg/dL Phosphorus (2.5-4.5) mg/dL Magnesium (1.6-2.3) mg/dL Total Protein (6.3-8.2) g/dL Albumin (3.5-5.0) g/dL 05/29/19 05/29/19 05/29/19 Range/Units 05:26 05:26 05:26 WBC 3.7 L (3.8-10.6) k/uL Hgb 11.3 L (11.4-16.0) gm/dL RDW 16.4 H (11.5-15.5) % Plt Count 140 L (150-450) k/uL ABG pH (7.35-7.45) ABG pCO2 (35-45) mmHg ABG pO2 (83-108) mmHg ABG HCO3 (21-25) mmol/L ABG Total CO2 (19-24) mmol/L ABG O2 Saturation (94-97) % Potassium 3.3 L (3.5-5.1) mmol/L Carbon Dioxide 21 L (22-30) mmol/L BUN 20 H (7-17) mg/dL Creatinine 1.15 H (0.52-1.04) mg/dL POC Glucose (mg/dL) (75-99) mg/dL Plasma Lactic Acid Guillermo 5.9 H* (0.7-2.0) mmol/L Calcium 7.8 L (8.4-10.2) mg/dL Phosphorus (2.5-4.5) mg/dL Magnesium (1.6-2.3) mg/dL Total Protein 4.9 L (6.3-8.2) g/dL Albumin 2.7 L (3.5-5.0) g/dL 05/29/19 05/29/19 05/29/19 Range/Units 05:26 08:00 09:13 WBC (3.8-10.6) k/uL Hgb (11.4-16.0) gm/dL RDW (11.5-15.5) % Plt Count (150-450) k/uL ABG pH 7.16 L* (7.35-7.45) ABG pCO2 50 H (35-45) mmHg ABG pO2 227 H (83-108) mmHg ABG HCO3 18 L (21-25) mmol/L ABG Total CO2 (19-24) mmol/L ABG O2 Saturation 99.2 H (94-97) % Potassium (3.5-5.1) mmol/L Carbon Dioxide (22-30) mmol/L BUN (7-17) mg/dL Creatinine (0.52-1.04) mg/dL POC Glucose (mg/dL) (75-99) mg/dL Plasma Lactic Acid Guillermo 6.9 H* (0.7-2.0) mmol/L Calcium (8.4-10.2) mg/dL Phosphorus 2.4 L (2.5-4.5) mg/dL Magnesium 1.3 L (1.6-2.3) mg/dL Total Protein (6.3-8.2) g/dL Albumin (3.5-5.0) g/dL - Imaging and Cardiology Chest x-ray: report reviewed, image reviewed CT scan - abdomen: report reviewed, image reviewed Assessment and Plan Assessment: 1. Lung cancer right upper lobe, status post robotic-assisted thoracoscopy, ly sis of adhesions, wedge resection, followed by right upper lobectomy 2. History of left sided non-small cell lung cancer with surgical resection in 2015 without chemo or radiation 3. Current tobacco dependence 4. COPD 5. Hypertension 6. Depression 7. Postoperative acute hypoxic respiratory failure, lactic acidosis, requiring intubation mechanical ventilation Plan: 1. Continue right pleural chest tube to continuous wall suction. Monitor for resolution of air leak. 2. Ventilator management, steroids, bronchodilators per Dr. Ramirez 3. Wean levo as able. Continue Nimbex per Dr. Ramirez. 4. Continue IV bicarb. 2 L IV fluids given. Vancomycin, Zosyn started. 5. CT of the abdomen completed, reviewed by Dr. Gardner. Will order stat echocardiogram and troponins to rule out cardiac cause. 6. Will monitor daily labs, x-rays. Calcium and magnesium replaced today 7. GI/DVT prophylaxis 8. Patient's family updated continuously at the bedside by Dr. Gardner, Dr. Ramirez, and Dr. Pérez. 9. More recommendations to follow Time with Patient: Greater than 30
[2019-05-29] MEDS ORDERED: IPRATROPIUM-ALBUTEROL 3 ML NEB INHALATION SCH (12:00)
--- NOTE | 2019-05-29 12:24 | PN ---
PROGRESS NOTE This morning the patient stood up to go to the bathroom, became more short of breath. Subsequently, became unresponsive and A team was called. She was found to be hypoxic and was intubated and transferred to the intensive care unit. She is sedated and paralyzed in the intensive care unit at this time. PHYSICAL EXAMINATION: Her blood pressure is 92/67, respiratory rate of 10, pulse rate of 114. Last temperature was 99.9 degrees Fahrenheit. HEENT reveals ET tube in place. Chest reveals decreased breath sounds on the left base and the right base there is air leak on the right side. There are scattered rhonchi. Cardiovascular system reveals an S1, S2. No S3, no S4. Abdomen is soft. There is trace pedal edema. LABS: Reveal an ABG pH of 7.16, PCO2 of 50, PO2 of 227, bicarb of 18, 02 sat of 99.2%. Sodium is 140, potassium 3.3, chloride 104, bicarb 21, BUN 20, creatinine 1.15. Venous lactic acid is 6.9. Magnesium 1.3, albumin 2.7. Chest x-ray shows evidence of right-sided chest tubing in place with a right apical pneumothorax with extensive consolidation of the right lung. CT scan of the abdomen and pelvis shows subcutaneous emphysema along the right chest wall and anterolateral abdomen. There is pleural effusion with right bibasilar masses with mass-like consolidation. IMPRESSION: 1. Probable recurrence of lung cancer. 2. Right-sided pneumonia is likely. 3. Acute respiratory failure. 4. Severe sepsis. Possible lung etiology versus abdominal etiology. 5. Systemic inflammatory response. 6. Acute renal insufficiency. 7. Electrolyte abnormality. 8. Respiratory and metabolic acidosis, in part due to lactic acidosis. At this point in time, from a pulmonary standpoint, would continue antibiotics, pressor support, resuscitate with fluids, have ID further evaluate the patient, optimize ventilation to correct respiratory acidosis. Prognosis at this time is extremely guarded. MMODL / IJN: [id number] /
[2019-05-29] MEDS ORDERED: HEPARIN SODIUM,PORCINE 5,000 UNIT/ML 1 ML VIAL IV PRN (12:30)
[2019-05-29] MEDS ORDERED: NOREPINEPHRINE 32 MG in SODIUM CHLORIDE 0.9% 218 ML IV SCH (12:30)
[2019-05-29] MEDS ORDERED: HEPARIN SODIUM,PORCINE 10,000 UNIT/ML 1 ML VIAL IV ONE (12:30)
[2019-05-29] MEDS ORDERED: HEPARIN SOD,PORK IN 0.45% NACL 25,000 UNIT in 0.45% NACL 1 250ML.BAG IV SCH (12:30)
--- NOTE | 2019-05-29 12:42 | ECHOF ---
Referral Reason:assess LV MEASUREMENTS -------- HEIGHT: 162.6 cm WEIGHT: 53.7 kg BP: 134/98 RVIDd: 2.5 cm (< 3.3) IVSd: 1.4 cm (0.6 - 1.1) LVIDd: 2.7 cm (3.9 - 5.3) LVPWd: 1.5 cm (0.6 - 1.1) IVSs: 1.6 cm LVIDs: 2.3 cm LVPWs: 1.8 cm LAESV Index (A-L): 16.10 ml/m Ao Diam: 2.8 cm (2.0 - 3.7) AV Cusp: 1.8 cm (1.5 - 2.6) LA Diam: 2.7 cm (2.7 - 3.8) MV E James: 0.73 m/s MV DecT: 203 ms MV A James: 0.91 m/s MV E/A Ratio: 0.80 AR PHT: 433 ms RAP: 5.00 mmHg RVSP: 30.87 mmHg FINDINGS -------- Resting tachycardia (HR>100bpm). This was a technically adequate study. Pt. on a vent. The left ventricular size is normal. There is moderate concentric left ventricular hypertrophy. T here is moderate global hypokinesis of LV . Overall left ventricular systolic function is moderate- severely impaired with, an EF between 30 - 35 %. Mitral Doppler inflow pattern suggests diastolic f illing abnormality 26.62. The right ventricle is normal in size. Normal LA size by volume 22+/-6 ml/m2. The right atrium was not well visualized. Interatrial and interventricular septum intact. The aortic valve is trileaflet and appears structurally normal. There is [id number] aortic re gurgitation. There is no evidence of aortic stenosis. There is trace mitral regurgitation. Mild tricuspid regurgitation present. There is borderline pulmonary artery hypertension. The righ t ventricular systolic pressure, as measured by Doppler, is 30.87mmHg. There is no pulmonic regurgitation present. The aortic root size is normal. IVC Not well visulized. There is no pericardial effusion. CONCLUSIONS -------- 1. Resting tachycardia (HR>100bpm). 2. This was a technically adequate study. 3. Pt. on a vent. 4. The left ventricular size is normal. 5. There is moderate concentric left ventricular hypertrophy. 6. There is moderate global hypokinesis of LV . 7. Overall left ventricular systolic function is moderate-severely impaired with, an EF between 30 - 35 %. 8. Mitral Doppler inflow pattern suggest diastolic filling abnormality 26.62. 9. The right ventricle is normal in size. 10. Normal LA size by volume 22+/-6 ml/m2. 11. The right atrium was not well visualized. 12. Interatrial and interventricular septum intact. 13. The aortic valve is trileaflet and appears structurally normal. 14. There is [id number] aortic regurgitation. 15. There is no evidence of aortic stenosis. 16. There is trace mitral regurgitation. 17. Mild tricuspid regurgitation present. 18. There is borderline pulmonary artery hypertension. 19. The right ventricular systolic pressure, as measured by Doppler, is 30.87mmHg. 20. There is no pulmonic regurgitation present. 21. The aortic root size is normal. 22. IVC Not well visulized. 23. There is no pericardial effusion. RESERVATION CLERK: Yamileth Carreon RDCS
[2019-05-29 13:03] LABS: ABG Base Excess -10.2 mmol/L; ABG HCO3 17 mmol/L (21-25); ABG Oxygen Saturation 94.4 % (94-97); ABG PCO2 38 mmHg (35-45); ABG PH 7.26 (7.35-7.45); ABG PO2 79 mmHg (83-108); ABG TCO2 18 mmol/L (19-24); Allen Test Performed? Yes
[2019-05-29 13:04] VITALS: BP 134/98
[2019-05-29] MEDS ORDERED: SODIUM CHLORIDE 0.9% 150 ML with VASOPRESSIN 60 UNIT IV SCH ×2 (13:15)
[2019-05-29] MEDS ORDERED: SODIUM CHLORIDE 0.9% 1,000 ML BAG ONE (13:18)
[2019-05-29] MEDS ORDERED: EPINEPHrine 10 ML SYRINGE (0.1 MG/ML) ONE (13:18)
[2019-05-29] MEDS ORDERED: SODIUM BICARB 8.4% 50 ML SYR (1 MEQ/ML) ONE (13:18)
[2019-05-29] MEDS ORDERED: CALCIUM CHLORIDE 100 MG/ML 10 ML SYRINGE ONE (13:18)
[2019-05-29] MEDS ORDERED: DEXTROSE 50% SYRINGE 50 ML IVP ONE (13:18)
[2019-05-29] MEDS ORDERED: DOPamine DRIP 400 MG/250 ML BAG IV ONE (13:18)
[2019-05-29 13:39] LABS: Anisocytosis Slight; HCT 28.3 % (34.0-46.0); Hypochromasia Marked; MCH 25.7 pg (25.0-35.0); MCHC 31.1 g/dL (31.0-37.0); MCV 82.6 fL (80.0-100.0); Mean Platelet Volume 9.9; Platelet Count 153 k/uL (150-450); RBC 3.43 m/uL (3.80-5.40); RDW 16.6 % (11.5-15.5); WBC 2.6 k/uL (3.8-10.6)
[2019-05-29 13:40] LABS: HGB 8.8 gm/dL (11.4-16.0)
[2019-05-29] MEDS ORDERED: DOPamine DRIP 800 MG in DEXTROSE/WATER 1 250ML.BAG IV SCH (13:45)
[2019-05-29 13:52] LABS: Prothrombin Time 59.6 sec (9.0-12.0)
[2019-05-29 13:59] LABS: Glucose,Whole Blood <20 mg/dL (75-99)
[2019-05-29 14:07] VITALS: PULSE 0; RESP 0
[2019-05-29 14:08] LABS: INR 6.2 (<1.2); Partial Thromboplastin Time >200.0 sec (22.0-30.0)
[2019-05-29 15:23] VITALS: TEMP 97.6
[2019-05-29] MEDS ORDERED: FORMOTEROL FUMARATE 20 MCG/2 ML NEBU INHALATION SCH (20:00)
[2019-05-29] MEDS ORDERED: BUDESONIDE 0.5 MG/2 ML NEBU INHALATION SCH (20:00)
--- NOTE | 2019-05-29 23:06 | PCN ---
PROCEDURE NOTE TRIPLE LUMEN CATHETER PLACEMENT: Indication: Hemodynamic monitoring/Intravenous access. A time-out was completed verifying correct patient, procedure, site, positioning, and implant(s) or special equipment if applicable. The patient was placed in a dependent position appropriate for triple lumen catheter placement based on the vein to be cannulated. The patient's left neck was prepped and draped in sterile fashion. 1% Lidocaine was used to anesthetize the surrounding skin area. A triple lumen 9F Cordis catheter was introduced into the left internal jugular vein using Seldinger technique. The catheter was threaded smoothly over the guide wire and appropriate blood return was obtained. Each lumen of the catheter was evacuated of air and flushed with sterile saline. The catheter was then sutured in place to the skin and a sterile dressing applied. Perfusion to the extremity distal to the point of catheter insertion was checked and found to be adequate. There was good placement of the catheter. There was good blood return from all three ports. The patient tolerated the procedure well. A chest x-ray was ordered to check placement. The catheter was sutured into place. There was no immediate complication. A sterile dressing was applied by the nurse. MMODL / IJN: [id number] /
--- NOTE | 2019-05-29 23:12 | PCN ---
PROCEDURE NOTE ARTERIAL LINE PLACEMENT: PREOPERATIVE DIAGNOSIS: Frequent blood gases and blood gas monitoring. POSTOPERATIVE DIAGNOSIS: Frequent blood gases and blood gas monitoring. A time-out was completed verifying correct patient, procedure, site, positioning, and implant(s) or special equipment if applicable. Kendell's test was performed to ensure adequate perfusion. The patient's right groin was prepped and draped in sterile fashion. 1% Lidocaine was used to anesthetize the area. An 18G Arrow arterial line was introduced into the femoral artery. The catheter was threaded over the guide wire and the needle was removed with appropriate pulsatile blood return. Blood loss was minimal. The catheter was then sutured in place to the skin and a sterile dressing applied. Perfusion to the extremity distal to the point of catheter insertion was checked and found to be adequate. The patient tolerated the procedure well and there were no complications. There were no immediate complications. There was good waveform and blood pressure reading. The catheter was sutured in place. Sterile dressing was applied by the nurse. MMODL / IJN: [id number] /
[2019-05-30] MEDS ORDERED: VANCOMYCIN 1,000 MG in SODIUM CHLORIDE 0.9% 250 ML IVPB SCH (02:00)
--- NOTE | 2019-05-30 09:36 | P.DS ---
Providers Date of admission: 05/27/19 05:46 Expected date of discharge: 05/29/19 Attending physician: Gustavo Gardner Consults: 05/27/19 12:06 Consult Physician Routine Consulting Provider: Khurram Pérez Consult Reason/Comments: your patient, post lobectomy Do you want consulting provider notified?: Yes Consult Physician Routine Consulting Provider: Hugo Montez Consult Reason/Comments: pulmonology, post lobectomy Do you want consulting provider notified?: Yes 05/27/19 12:31 Consult Physician Routine Consulting Provider: Pablo Rodriguez Consult Reason/Comments: known to you, post lobectomy Do you want consulting provider notified?: Yes 05/29/19 07:42 Consult Physician Urgent Consulting Provider: Jaden Ramirez Consult Reason/Comments: home care consultant management in ICU Do you want consulting provider notified?: Yes 05/29/19 09:41 Consult Physician Urgent Consulting Provider: Jesus Madsen Consult Reason/Comments: elevated lactic Do you want consulting provider notified?: Yes 05/29/19 10:50 Consult Physician Routine Consulting Provider: Wendy Lucas Consult Reason/Comments: respiratory failure/tachycardia Do you want consulting provider notified?: Yes Primary care physician: Khurram Pérez [place] [facility] Course: FINAL DIAGNOSIS: 1. Lung cancer right upper lobe 2. History of left-sided non-small cell lung cancer with surgical resection in 2012 without chemo or radiation 3. Current tobacco dependence 4. COPD 5. Hypertension 6. Depression 7. Postoperative acute hypoxic respiratory failure, lactic acidosis, requiring intubation and mechanical ventilation, unexpected post-surgical condition related to patient's underlying comorbidities 8. Severe gram-negative sepsis of unknown origin, with blood cultures positive for pseudomonas and preliminary sputum culture positive for gram-negative bacilli PRINCIPAL PROCEDURE: 1. Mediastinoscopy, right third thoracoscopic with robotic assist with lysis of adhesions, wedge resection right upper lobe, right upper lobectomy 2. Bedside bronchoscopy by Dr. Ramirez HISTORY OF PRESENT ILLNESS: This is a 68-year-old female patient of Dr. Khurram Pérez, who was discovered to have a right upper lobe mass, which was PET positive. There was no evidence of mediastinal or hilar disease. She was an active smoker with significant COPD and significant obstructive disease by PFTs, although her PFTs were consistent with ability to tolerate lobectomy in January. 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 It was below 2 cm but had pleural involvement and thus was T2. There is no intraoperative hilar node staging at that time so she was pathologically T2 with clinically N0 tumor. At that time she was referred to Dr. Villalba and Dr. Rodriguez. A repeat PET scan was performed at the 3 month interval. This demonstrated uptake in the surgical sites and very mild uptake in a pretracheal lymph node which was enlarged slightly over the previous. Dr. Rodriguez was requesting mediastinoscopy for evaluation of the lymph node. The patient was referred to Dr. Gardner from cardiothoracic surgery. Treatment options were outlined for the patient. She was recommended to undergo mediastinoscopy. She was advised that if the lymph node was negative she would undergo lobectomy, and if the lymph node was positive she should undergo chemo and radiation. The usual perioperative course was discussed in detail with the patient and her family, all risks and benefits were explained, all questions were answered. She wished to go home and think about it for a few days, and consent was eventually obtained to proceed with surgery, and it was scheduled at the earliest possible convenience. HOSPITAL COURSE: The patient was brought to the hospital on 05/27/2019, taken to the preoperative area, prepared in the usual fashion, and subsequently taken to the operating room where Dr. Gardner performed a mediastinoscopy followed by a right robotic-assisted thoracoscopic lysis of adhesions, wedge resection of the right upper lobe, and finally a right upper lobectomy. Upon completion of surgery the patient was extubated and taken to the recovery room for closer monitoring. She was eventually admitted to the cardiac stepdown unit where she continued to recover. She did have a noticeable air leak present in her chest tube which was expected given the extensive nature of her surgery. She was stable the morning after surgery, she was sitting up in a recliner, drinking coffee, on 2 L nasal cannula with adequate oxygen saturations, her pain was controlled, and she was tolerating oral intake. At some point later that night she became tachycardic, confused, and slightly obtunded. An A-team was called, ABGs were obtained which demonstrated hypoxic respiratory failure and the patient was intubated and transferred to the intensive care unit. She had a very rigoberto course on postop day #2 requiring high doses of propofol for sedation and paralytic to keep her synchronous with the ventilator. Lactic acid was drawn and was elevated, 2 L of IV fluid bolus was given, morris cultures were ordered, and the patient was started on prophylactic Vancomycin and Zosyn. The patient did have a bronchoscopy performed at the bedside without any obvious significant abnormalities. She had a series of x-rays, as well as blood gases drawn which continued to show a trend of acidosis. She was given IV bicarbonate and ventilator settings were adjusted several times. She was sent for a CT of the abdomen to try to determine the source of acidosis. Her blood pressure continued to decline, levo was titrated up to a maximum rate, vasopressin was added. An echocardiogram was completed demonstrating moderate to severely impaired left ventricular function with an EF 30-35% with no significant valvular abnormalities, normal right ventricle and left atrium size and no pericardial effusion. Orogastric tube initially put out trace amount greenish yellow fluid, but eventually changed to copious amounts of stool-like fluid. Unfortunately she continued to decline and eventually lost a pulse and blood pressure. A CODE BLUE was called and ACLS protocol was followed. Patient's family members were present for the code and were updated continuously. At one point we did regain a pulse and blood pressure, both of which were elevated but this was likely due to the multiple rounds of epinephrine given as she did not maintain a pulse and blood pressure for very long. Compressions were again started, and patient received further doses of ACLS medications. 1:54 PM the code was ended with the family's consent, the patient had no discernible pulse or blood pressure and she was pronounced . Cause of presumed to be overwhelming gram-negative sepsis of unknown origin. COMPLICATIONS: The patient experienced postoperative complications of acute hypoxic respiratory failure, lactic acidosis requiring intubation and mechanical ventilation, gram negative sepsis, and . Plan - Discharge Summary Discharge Rx Participant: Yes New Discharge Prescriptions: No Action Tiotropium 18 Mcg/Puff [Spiriva] 2 puff INHALATION RT-BID HYDROcodone/APAP 10-325MG [[place] 10-325] 1 tab PO QID ALPRAZolam [Xanax] 1 mg PO TID Ipratropium-Albuterol Nebulize [Duoneb 0.5 mg-3 mg/3 ml Soln] 3 ml INHALATION RT-BID Pregabalin [Lyrica] 75 mg PO BID Desvenlafaxine Succinate [Pristiq ER] 50 mg PO HS Hydrocortisone [Cortizone 10] 1 applic TOPICAL QID Carvedilol [Coreg] 6.25 mg PO BID Budesonide-Formot 160-4.5 Mcg [Symbicort 160-4.5 Mcg Inhaler] 2 puff INHALATION RT-BID buPROPion [Wellbutrin] 75 mg PO BID Discharge Medication List ALPRAZolam [Xanax] 1 mg PO TID 08/12/14 [History] HYDROcodone/APAP 10-325MG [[place] 10-325] 1 tab PO QID 08/12/14 [History] Ipratropium-Albuterol Nebulize [Duoneb 0.5 mg-3 mg/3 ml Soln] 3 ml INHALATION RT-BID 08/12/14 [History] Tiotropium 18 Mcg/Puff [Spiriva] 2 puff INHALATION RT-BID 08/12/14 [History] Desvenlafaxine Succinate [Pristiq ER] 50 mg PO HS 10/17/14 [History] Pregabalin [Lyrica] 75 mg PO BID 10/17/14 [History] Hydrocortisone [Cortizone 10] 1 applic TOPICAL QID 12/12/14 [History] Budesonide-Formot 160-4.5 Mcg [Symbicort 160-4.5 Mcg Inhaler] 2 puff INHALATION RT-BID 05/18/19 [History] Carvedilol [Coreg] 6.25 mg PO BID 05/18/19 [History] buPROPion [Wellbutrin] 75 mg PO BID 05/27/19 [History] Follow up Appointment(s)/Referral(s): [facility] [NON-STAFF] - 1-2 Days Discharge Disposition: - Preliminary Cause of Preliminary Cause of : Gram-negative sepsis of unknown origin
--- NOTE | 2019-06-02 14:03 | CDI ---
Documentation Clarification Form Date: 06/02/2019 2:00:00 PM From: Trinity Baker Phone: If questions call Tara Shah @ [phone], Hours-8:30 am & 5 pm MJuan Collins Admit Date: 05/27/2019 5:46:00 AM Patient Name: Rhea Gaming Visit Number: [id number] Discharge Date: 05/29/2019 1:54:00 PM ATTENTION: The Clinical Documentation Specialists (CDI) and [facility] Coding Staff appreciate your assistance in clarifying documentation. Please respond to the clarification below the line at the bottom and electronically sign. The CDI & [facility] Coding staff will review the response and follow-up if needed. Please note: Queries are made part of the Legal Health Record. If you have any questions, please contact the author of this message via ITS. Dr. Gustavo Gardner Postoperative acute hypoxic respiratory failure, lactic acidosis, requiring intubation and mechanical ventilaiton is documented in the discharge summary. Patients Admitting Diagnosis: lung cancer right upper lobe Post-Operative Diagnosis: same Procedure performed: Right third thoracoscopy with robotic assist with lysis of adhesions, wedge resection, right upper lobe, right upper lobectomy. History/Risk Factors: sepsis due to pseudomonas, severe sepsis, AE- COPD w pneumonia, pneumothorax Treatment: intubation w mechanical ventilation Consults: Dr Ramirez & Dr Daksha Montez In order to accurately reflect this patients severity of illness, please clarify if the post-operative diagnosis of acute hypoxic respiratory failure is: An expected post-procedural or post-surgical condition An unexpected post-procedural or post-surgical condition related to surgical care (a complication of care) An unexpected post-procedural or post-surgical condition, related to the patients underlying medical comorbidities Other, please specify ____ Unable to determine Unexpected condition related to patient medical condition. YOANNAD
--- NOTE | 2019-06-05 23:25 | PN ---
PROGRESS NOTE ICU note DATE OF SERVICE: 05/29/2019. SUBJECTIVE: This is a white female who I came in to see after talking to sheet sewer at 8 in the morning. The patient apparently had a sudden onset of cardiorespiratory failure with severe hypotension, unresponsive to multiple medications in acute fashion. She came in. Ordered CT scan of the chest which was not done as she was unstable. Apparently a CT scan of the abdomen was done in the middle of the night, which shows some large right pleural effusion, but no CT scan of the chest was done after I ordered it or in middle of the night. I suspect the patient who apparently later in the morning and failed all sources of cardiorespiratory resuscitation by sheet sewer, of some acute cardiovascular cardiopulmonary arrest of probably from a pulmonary source, which may have been found by CT of the chest which was not done even though I ordered when I first found out she was having difficulties at 8 in the morning when sheet sewer called me. Did not receive a call from any of the nurses even though I was on consult, from the time she had decompensation at midnight to 8 in the morning when the sheet sewer called medication. Discussed case with the family and my opinions. Discharge summary shows probable source of sepsis, which I do not agree with as patient had an acute event as she was sitting up in bed, talking, eating normally 2 days after surgery until the night of cardiopulmonary arrest with no signs of any fevers, chills, elevated white count or signs of any sepsis at all. So I do not agree with the discharge summary as the cause of . Definitely a cardiopulmonary event, which probably would have been found with a CT scan of the chest. MMODL / IJN: [id number] /
== END 2019-05-29 13:54 | disposition expired | DRG 163 ==
LOC: 2ORMAIN 05:46 → 3SCARD 14:02 → 2SICU 05-29 05:53
PROVIDERS: ADMIT Thoracic Surgery (Cardiothoracic Vascular Surgery); ATTEND Thoracic Surgery (Cardiothoracic Vascular Surgery)
PROC: 8E0W4CZ Robotic Assisted Procedure of Trunk Region, Percutaneous Endoscopic Approach (ICD-10-PCS; 2019-05-27)
PROC: 0BTC4ZZ Resection of Right Upper Lung Lobe, Percutaneous Endoscopic Approach (ICD-10-PCS; principal; 2019-05-27 07:30)
PROC: 0BBK4ZX Excision of Right Lung, Percutaneous Endoscopic Approach, Diagnostic (ICD-10-PCS; 2019-05-27 07:30)
PROC: 5A12012 Performance of Cardiac Output, Single, Manual (ICD-10-PCS; 2019-05-29)
PROC: 5A1935Z Respiratory Ventilation, Less than 24 Consecutive Hours (ICD-10-PCS; 2019-05-29)
PROC: 0D9670Z Drainage of Stomach with Drainage Device, Via Natural or Artificial Opening (ICD-10-PCS; 2019-05-29)
PROC: 0BH17EZ Insertion of Endotracheal Airway into Trachea, Via Natural or Artificial Opening (ICD-10-PCS; 2019-05-29)
PROC: 02H633Z Insertion of Infusion Device into Right Atrium, Percutaneous Approach (ICD-10-PCS; 2019-05-29)
PROC: 04HY32Z Insertion of Monitoring Device into Lower Artery, Percutaneous Approach (ICD-10-PCS; 2019-05-29)
PROC: 4A133B1 Monitoring of Arterial Pressure, Peripheral, Percutaneous Approach (ICD-10-PCS; 2019-05-29)
PROC: 4A133J1 Monitoring of Arterial Pulse, Peripheral, Percutaneous Approach (ICD-10-PCS; 2019-05-29)
DX: C34.11 Malignant neoplasm of upper lobe, right bronchus or lung (principal); J18.9 Pneumonia, unspecified organism; J96.01 Acute respiratory failure with hypoxia; A41.52 Sepsis due to Pseudomonas; R65.20 Severe sepsis without septic shock; J44.0 Chronic obstructive pulmonary disease with (acute) lower respiratory infection; J93.9 Pneumothorax, unspecified; E44.0 Moderate protein-calorie malnutrition; J93.82 Other air leak; E87.4 Mixed disorder of acid-base balance; E87.2 Acidosis; J98.2 Interstitial emphysema; E83.51 Hypocalcemia; N28.9 Disorder of kidney and ureter, unspecified; K66.0 Peritoneal adhesions (postprocedural) (postinfection); I10 Essential (primary) hypertension; F41.9 Anxiety disorder, unspecified; M19.90 Unspecified osteoarthritis, unspecified site; F32.9 Major depressive disorder, single episode, unspecified; M51.26 Other intervertebral disc displacement, lumbar region; M79.7 Fibromyalgia; F17.210 Nicotine dependence, cigarettes, uncomplicated; Z68.20 Body mass index [BMI] 20.0-20.9, adult; Z71.6 Tobacco abuse counseling; Z79.51 Long term (current) use of inhaled steroids; Z79.899 Other long term (current) drug therapy; Z90.710 Acquired absence of both cervix and uterus; Z90.49 Acquired absence of other specified parts of digestive tract; Z98.890 Other specified postprocedural states; Z90.2 Acquired absence of lung [part of]; Z87.01 Personal history of pneumonia (recurrent); Z85.118 Personal history of other malignant neoplasm of bronchus and lung; Z86.19 Personal history of other infectious and parasitic diseases; Z82.49 Family history of ischemic heart disease and other diseases of the circulatory system; Z80.1 Family history of malignant neoplasm of trachea, bronchus and lung; Z83.1 Family history of other infectious and parasitic diseases; Z81.8 Family history of other mental and behavioral disorders
CPT/HCPCS: 36600; 71045; 74177; 80053; 82805; 83605; 83735; 83880; 84100; 84484; 85025; 85027; 85610; 85730; 87040; 87070; 87077; 87086; 87186; 87205; 88305; 88307; 88309; 93306; 94002; 94640; 94760; 94770